=== PATIENT | female | born 1995 | race Caucasian/White ===

== ENCOUNTER 2017-06-24 17:18 | Emergency (ER) | payer MEDICAID, SELFPAY ==
[2017-06-24 17:19] VITALS: BP 130/78; PULSE 101; RESP 16; TEMP 36.9; O2SAT 97; BMI 20.9
--- NOTE | 2017-06-24 17:59 | ED.VISSUMM ---
- ER Visit Summary Date of Service: 06/24/17 Chief Complaint: [Vaginal bleeding] History of Present Illness: The patient is a 21 F [resents to the emergency department with spotting ?1 week. Patient states that over a week ago she took a home test that was positive. Patient is . Last menstrual period ended May 14. Patient denies any abdominal pain or cramping. Patient denies urinary symptoms. She has no history of STDs.] Physical Examination: [HEENT-PERRLA, EOMI. Cranial nerves II through XII grossly intact. TMs clear. Mucous membranes moist. No adenopathy. Cardiovascular-regular rate and rhythm without murmur or ectopy Lungs-clear to auscultation, chest wall stable without crepitus or subcu emphysema Abdomen-normoactive bowel sounds, soft, nontender, no rebound or rigidity, no peritoneal signs. Extremities-intact ?4, normal range of motion, normal pulses, atraumatic] Test Results: [CBC with differential showed a white count of 5.9, hemoglobin 12.6, hematocrit 36, platelets 263. Urinalysis was normal. Type and Rh was O+. Quantitative hCG was 25,830. Pelvic ultrasound obtained showed a single live intrauterine measuring 6 weeks 3 days with a minimal subchorionic hemorrhage and a heart rate of 93 bpm.] Emergency Department Course and Treatment: [None Treatment Plan: [Patient to keep follow-up appointment with her HOUSEKEEPING ROOM INSPECTOR on July 06.] Disposition: [Discharged to home in stable condition. Patient to return if pelvic pain, severe bleeding, or condition should worsen in any way.] Impression: [First trimester vaginal bleeding Threatened ] This note was generated with [employer] dictation software. It may contain incorrect words, spelling, and punctuation that were not noted in review of the chart prior to signing ED Disposition - Plan for ED Patient: Chief Complaint: Referrals: Lam Lozano MD [Primary Care Provider] -
[2017-06-24 18:01] LABS: Absolute Lymphocyte Count 2.54 X10^3/ul (0.83-4.51); Absolute Neutrophil Count 2.8 X10^3/uL (2.0-7.7); Basophil# 0.02 X10^3/uL; Basophil% 0.3 % (0-1); Eosinophil# 0.11 X10^3/uL; Eosinophils% 1.9 % (0-5); Hematocrit 36.4 % (37-47); Hemoglobin 12.6 g/dl (12.0-15.0); Lymphocyte # 2.54 X10^3/ul (4.0); Lymphocyte % 43.4 % (19-41); Mean Corp Hgb Conc 34.6 g/gl (32-36); Mean Corpuscular Volume 83.7 fL (81-99); Mean Platelet Vol. 9.3 fl (6.2-12.0); Monocyte# 0.33 X10^3/uL; Monocyte% 5.6 % (0-10); Neutrophil # 2.84 X10^3/uL (2.7-7.7); Neutrophil % 48.6 % (47-70); Platelet Count 263 K/mm3 (150-450); RBC Distribution Width CV 12.1 % (11.6-14.6); RBC Distribution Width SD 37.1 fl (35.1-43.9); Red Blood Count 4.35 M/mm3 (4.2-5.4); White Blood Count 5.9 K/mm3 (4.4-11.0)
[2017-06-24 18:03] LABS: POSITIVE COUNT NO; POSITIVE DIFFERENTIAL NO; POSITIVE MORPHOLOGY NO
[2017-06-24 18:27] LABS: Red Blood Cells-Urine 0 SEEN /hpf (0-5); White Blood Cells 0 SEEN /hpf (0-5)
[2017-06-24 18:38] LABS: Color, Urine Yellow (Yellow); Glucose, Dipstick Normal (Normal); Ketone-Dipstick 15 mg/dl (Negative); Leukocyte Esterase-Dipstick Negative /ul (Negative); Nitrite-Dipstick Negative (Negative); Occult Blood-Urine 25 /ul (Negative); Protein-Dipstick Negative (Negative); Specific Gravity, Urine 1.015 (1.002-1.030); Urine Bilirubin Dipstick Negative (Negative); Urine Clarity Clear (Clear); Urine Urobilinogen Normal (Normal); Urine pH 6.5 (5.0 - 8.0)
[2017-06-24 19:01] LABS: Bacteria RARE /hpf (None Seen); Mucous, Urine 1+ /hpf (<or=2+); Squamous Epithelial Cells - UA 0-5 SEEN /hpf (5-10)
--- NOTE | 2017-06-24 19:02 | US_ITS ---
STUDY: FIRST TRIMESTER OBSTETRICAL ULTRASOUND REASON FOR EXAM: Female, 21 years old. Vaginal spotting. LMP: 2-18 TECHNIQUE: Transvaginal real-time exam with ortega scale image documentation and limited Doppler color flow. PRIOR ULTRASOUND: None. FINDINGS: There is visualization of a single gestational sac in a normal intrauterine position. The mean sac diameter (MSD) measures 1.5 cm, indicating an estimated gestational age (EGA) of 6 weeks, 3 days. The gestational sac shape is within normal limits. There is a visualized yolk sac. The yolk sac measures 3.4 mm. The placenta is non-visualized. There is visualization of a live embryo. The crown-rump length (CRL) measures 0.54 cm, indicating an estimated gestational age (EGA) of 6 weeks, 3 days. There is demonstrated cardiac activity with a heart rate of 93 bpm. The estimated gestation age (EGA) by LMP is 6 weeks, 5 days. The estimated date of delivery (MAYKEL) by LMP is 02/12/2018 The estimated gestation age (EGA) by US is 6 weeks, 3 days. The estimated date of delivery (MAYKEL) by US is 02/14/2018. The uterus measures 7.3 x 5.2 x 4.5 cm. There is no demonstrated uterine fibroid. The cervix is closed. Minimal subchorionic hemorrhage. The right ovary measures 3.4 x 2.6 x 1.9 cm. There is a 2.2 x 1.9 x 1.6 hemorrhagic cyst of the right ovary. There is no visualized right adnexal mass or complex lesion. The left ovary measures 2.5 x 1.3 x 1.0 cm. There is no left ovarian cyst. There is no visualized left adnexal mass or complex lesion. There is minimal fluid in the cul de sac. US/Transvaginal w/Preg US IMPRESSION: Single living intrauterine fetus of 6 weeks and 3 days with an MAYKEL of 02/14/2018. Minimal subchorionic hemorrhage. 2.2 x 1.9 x 1.6 cm hemorrhagic corpus luteum cyst of the right ovary. Normal left ovary. No adnexal masses. Minimal free fluid. Electronically Signed: Jadyn Ortega MD at 20:28 EDT , Service support ,
[2017-06-24 20:17] VITALS: BP 121/77; PULSE 75; RESP 16; O2SAT 97
--- NOTE | 2017-06-24 20:53 | ED.DEP ---
ED Disposition - Plan for ED Patient: Chief Complaint: Instructions: ED Miscarriage Poss Referrals: Lam Lozano MD [Primary Care Provider] - America Simons MD [STAFF PHYSICIAN] - Keep Patricio appointment
[2017-06-24 21:06] VITALS: RESP 15
--- NOTE | 2017-06-24 21:07 | ED.RN ---
PT GIVEN WRITTEN AND VERBAL DISCHARGE INSTRUCTIONS AND EDUCATED ON FOLLOW UP WITH OB. PT IV D/C AND COVERED WITH 2X2 GAUZE DRESSING AND PAPER TAPE. MINIMAL BLEEDING FROM SITE NOTED. PT AMBULATORY OUT OF DEPT AFTER DRESSING SELF.
== END 2017-06-24 21:08 | disposition home or self-care (01) ==
PROVIDERS: Emergency Provider Emergency Medicine; Family Provider Pediatrics; PCP Pediatrics
DX: O20.0 Threatened abortion (principal); Z3A.01 Less than 8 weeks gestation of pregnancy
CPT/HCPCS: 76817; 81001; 84702; 85025; 86900; 99283; A4216

== ENCOUNTER 2018-02-06 23:20 | Outpatient (CLI) | payer MEDICAID, SELFPAY ==
[2018-02-06 23:47] VITALS: BMI 26.1
--- NOTE | 2018-02-12 08:42 | OB.TRI.NOTE ---
History of Present Illness Date of Service: 02/06/18 Was patient seen by the physician?: No Reason For Visit: R/O LABOR Date of Service: 02/06/18 Final MAYKEL: 02/17/18 Gestational age: 39 Weeks and 2 Days Allergies No Known Allergies Allergy (Verified 02/07/18 01:19 EDT) NST - FHR Rate Baby A Baseline: 125 bpm Variability:: Moderate Accelerations:: 15 x 15 Decelerations:: None NST Reactive:: Yes FHR Category:: Category I Uterine Activity:: irreg ctx/irritability Impression/Plan 22-year-old 1 para 0 at 38-3/7 weeks gestation for false labor. NST is reactive. Patient was found not to be in labor. Follow-up in the office as scheduled or as needed.
== END 2018-02-07 00:05 | disposition home or self-care (01) ==
LOC: WPOUT 23:43 → WP 23:44
PROVIDERS: Family Provider Pediatrics; PCP Pediatrics; Visit Provider Obstetrics & Gynecology
DX: O47.1 False labor at or after 37 completed weeks of gestation (principal); Z3A.39 39 weeks gestation of pregnancy
CPT/HCPCS: 59025; 59050; 99218; G0378

== ENCOUNTER 2018-02-19 07:25 | Inpatient (IN) | payer MEDICAID, SELFPAY ==
[2018-02-19] MEDS: Lactated Ringers 1,000 ML 50 ML IV (08:00)
[2018-02-19 08:24] VITALS: BMI 27.4
[2018-02-19 08:32] LABS: Hematocrit 33.8 % (37-47); Hemoglobin 11.4 g/dl (12.0-15.0); Mean Corp Hgb Conc 33.7 g/gl (32-36); Mean Corpuscular Hgb 28.6 pg (27.0-32.0); Mean Corpuscular Volume 84.9 fL (81-99); Mean Platelet Vol. 10.2 fl (6.2-12.0); Platelet Count 256 K/mm3 (150-450); RBC Distribution Width CV 12.7 % (11.6-14.6); RBC Distribution Width SD 38.2 fl (35.1-43.9); Red Blood Count 3.98 M/mm3 (4.2-5.4); White Blood Count 10.4 K/mm3 (4.4-11.0)
[2018-02-19 08:48] LABS: Scan Indicated on CBC? Y/N NO
--- NOTE | 2018-02-19 08:54 | PCM.HP.OB ---
History Date of Admission: 02/19/18 Final MAYKEL: 02/17/18 Final MAYKEL Source: US <20 weeks Gestational age: 40 Weeks and 2 Days History of this : This is a 22 year-old, G [1], P [0], at 40 weeks gestational age presenting to triage for evaluation of labor. Patient reports regular ctx started at 0300 this morning and are now 2-5 minutes apart. Patient denies VB or vaginal discharge. +FM noted. care initiated at 7 weeks x 15 visits and has had an uncomplicated course. Allergies No Known Allergies Allergy (Verified 02/19/18 08:25) Home Medications: Home Medications Acyclovir [Zovirax] 400 mg PO TID 02/06/18 Ferrous Sulfate 325 mg PO DAILY 02/06/18 Vits [Prenatabs FA ] 1 tablet PO DAILY 02/06/18 Smoking Status: Never smoker Alcohol: None Number of Fetus(es): 1 Heart Tracin baseline, moderate variability, + accels, no decels noted TOCO Analysis: 2-4 minutes, palpate moderately strong History Past Pregnancies: Past Pregnancies Delivery Date Name GA/Weeks Outcome Route Weight Gender Labor Length Anesthesia Delivery Location Provider FOB Labs: GBS pos, Urine Tox NEg, Urine Culture neg, Rubella Imm, HIV NEg, HepBsag Neg, Syphilis Neg, H/H = .2, GC/CT = Neg, 1 hour GTT = WNL Expected Infant Delivery Method: Spontaneous Vaginal Describe any other labor & delivery plans:: Epidural, Vaginal Delivery Number of Visits: 15 Review of Systems Constitutional: Denies: Chills, Fever, Weight Change HEENT: Denies: Head Aches, Sinus Congestion, Sinus Drainage Cardiovascular: Denies: Chest Pain, Palpitations Respiratory: Denies: Cough, Shortness of breath at rest, Sputum production Gastrointestinal: Reports: Abdominal Pain - Regular ctx noted. Denies: Nausea, Vomiting Genitourinary: Denies: Dysuria Gynecological: Reports: Vaginal discharge Musculoskeletal: Denies: Joint Pain, Joint Tenderness Skin: Denies: Rash, Wounds Neurological: Denies: Numbness, Tingling, Focal weakness Psychiatric: Denies: Anxiety, Depression, Homicidal Ideations, Suicidal Ideations Hematologic/ Lymphatic: Denies: Easy Bruising, Easy Bleeding Physical Exam Vitals: Normotensive and afebrile General: Alert, Oriented x3, No apparent distress HEENT: Atraumatic, Normocephalic. Negative for: Thyromegaly, Lymphadenopathy Cardiovascular: Regular rate, Regular Rhythm Lungs: Clear to auscultation Abdomen: Bowel Sounds Present, Gravid Neurological: Deep Tendon Reflexes 2+/4 and Symmetrical, Neuro grossly intact DIVERSIONAL THERAPIST'S ASSISTANT: Normal external genitalia. Negative for: Vulvar lesions Assessment/Plan This is a 22 year-old, G [1], P [0], at 40 weeks gestational age, Active Labor, Category I FHT. P: 1) Admit for labor - Dr. Corbin aware of admission 2) Epidural on request 3) Anticpate Mary Jacobs EGG SMELLER-CNM
--- NOTE | 2018-02-19 08:58 | HP.PCM_ITS ---
History Date of Admission: 02/19/18 Final MAYKEL: 02/17/18 Final MAYKEL Source: US <20 weeks Gestational age: 40 Weeks and 2 Days History of this : This is a 22 year-old, G [1], P [0], at 40 weeks gestational age presenting to triage for evaluation of labor. Patient reports regular ctx started at 0300 this morning and are now 2-5 minutes apart. Patient denies VB or vaginal discharge. +FM noted. care initiated at 7 weeks x 15 visits and has had an uncomplicated course. Allergies No Known Allergies Allergy (Verified 02/19/18 08:25) Home Medications: Home Medications Acyclovir [Zovirax] 400 mg PO TID 02/06/18 Ferrous Sulfate 325 mg PO DAILY 02/06/18 Vits [Prenatabs FA ] 1 tablet PO DAILY 02/06/18 Smoking Status: Never smoker Alcohol: None Number of Fetus(es): 1 Heart Tracin baseline, moderate variability, + accels, no decels noted TOCO Analysis: 2-4 minutes, palpate moderately strong History Past Pregnancies: Past Pregnancies Delivery Date Name GA/Weeks Outcome Route Weight Gender Labor Length Anesthesia Delivery Location Provider FOB Labs: GBS pos, Urine Tox NEg, Urine Culture neg, Rubella Imm, HIV NEg, HepBsag Neg, Syphilis Neg, H/H = .2, GC/CT = Neg, 1 hour GTT = WNL Expected Infant Delivery Method: Spontaneous Vaginal Describe any other labor & delivery plans:: Epidural, Vaginal Delivery Number of Visits: 15 Review of Systems Constitutional: Denies: Chills, Fever, Weight Change HEENT: Denies: Head Aches, Sinus Congestion, Sinus Drainage Cardiovascular: Denies: Chest Pain, Palpitations Respiratory: Denies: Cough, Shortness of breath at rest, Sputum production Gastrointestinal: Reports: Abdominal Pain - Regular ctx noted. Denies: Nausea, Vomiting Genitourinary: Denies: Dysuria Gynecological: Reports: Vaginal discharge Musculoskeletal: Denies: Joint Pain, Joint Tenderness Skin: Denies: Rash, Wounds Neurological: Denies: Numbness, Tingling, Focal weakness Psychiatric: Denies: Anxiety, Depression, Homicidal Ideations, Suicidal Ideat ions Hematologic/ Lymphatic: Denies: Easy Bruising, Easy Bleeding Physical Exam Vitals: Normotensive and afebrile General: Alert, Oriented x3, No apparent distress HEENT: Atraumatic, Normocephalic. Negative for: Thyromegaly, Lymphadenopathy Cardiovascular: Regular rate, Regular Rhythm Lungs: Clear to auscultation Abdomen: Bowel Sounds Present, Gravid Neurological: Deep Tendon Reflexes 2+/4 and Symmetrical, Neuro grossly intact ROOM ATTENDANTS: Normal external genitalia. Negative for: Vulvar lesions Assessment/Plan This is a 22 year-old, G [1], P [0], at 40 weeks gestational age, Active Labor, Category I FHT. P: 1) Admit for labor - Dr. Corbin aware of admission 2) Epidural on request 3) Anticpate Mary Jacobs LEATHER STRIPPING MACHINE OPERATOR-CNM
[2018-02-19] MEDS: fentaNYL-bupivacaine (epidural) 100 ML BAG EPIDURAL (10:20)
[2018-02-19] MEDS: Oxytocin 30 units/NS 500 ml 30 UNITS/500 ML IV.SOLN 334 UNITS IV (11:25)
--- NOTE | 2018-02-19 11:50 | PCM.OB.VAG ---
Vaginal Delivery Maternal Presentation: Active Labor Amniotic Membrane Rupture Type: Spontaneous Rupture of Membrane time: 0900 on 02/19/18 Amniotic Fluid Description: Clear Final MAYKEL: 02/17/18 Gestational age: 40 Weeks and 2 Days Date of Procedure: 02/19/18 Pre-Operative Diagnosis: Active Labor Post-Operative Diagnosis: of viable baby boy Surgery/ Procedure Performed: Spontaneous Vaginal Delivery Anesthesiologist: Km Villeda Type of Anesthesia: Epidural Description of Procedure: Patient progressed quickly to C/C/+2 with urge to bear down. Patient pushed well with urge and delivered viable baby boy over intact perineum @ 1125. Infant head delivered OA, restituted to JAMISON and then LOT. Anterior shoulder delivered without difficulty followed by posterior shoulder and body. Infant with spontaneous cry and respirations and was placed on maternal abdomen where baby was dried and stimulated and mouth and nose bulb suctioned. Apgars 8 and 9. Weight pending. Umbilical cord clamped and cut once it stopped pulsing by FOB. Placenta then delivered spontaneously via Davies mechanism intact with 3VC. Placental triage WNL. FF midline @ 2FB below umbilicus. EBL = 150cc. Upon inspection of vaginal vault, Rt. periurethral abrasion noted with good hemostasis. No repair indicated. Vaginal sweep negative. Sponge count correct. Baby to breast, [id number] and bonding initiated. Mary CORRALES Presentation: Vertex, JAMISON Placental Delivery Description: Spontaneous Placenta Disposition: [facility] Cord Vessel Description: 3 Vessels Cord Entanglement: None Estimated Blood Loss: 150 Infant A gender: Male (1 minute): 8 (5 minute): 9 Episiotomy Description: None Laceration: None Medications given after delivery: IV Pitocin Complications: None
[2018-02-19] MEDS: Oxytocin 30 units/NS 500 ml 30 UNITS/500 ML IV.SOLN 167 UNITS IV (12:00)
[2018-02-19] MEDS: Lactated Ringers 1,000 ML 15 ML IV (12:51)
[2018-02-19 13:59] VITALS: BP 117/54; PULSE 70; RESP 16; TEMP 37.1; O2SAT 99
[2018-02-19 15:58] VITALS: BP 122/64; PULSE 94; RESP 18; TEMP 36.7; O2SAT 99
[2018-02-19 19:38] VITALS: BP 118/66; PULSE 87; RESP 16; TEMP 37.3; O2SAT 96
[2018-02-19] MEDS: Ibuprofen 600 MG Tablet PO (19:40)
[2018-02-20 00:08] VITALS: BP 109/64; PULSE 91; RESP 16; TEMP 36.3; O2SAT 97
[2018-02-20 04:09] VITALS: BP 128/85; PULSE 80; RESP 16; TEMP 36.6; O2SAT 97
[2018-02-20 07:25] VITALS: BP 114/54; PULSE 71; RESP 16; TEMP 36.3; O2SAT 98
[2018-02-20] MEDS: Ibuprofen 600 MG Tablet PO ×2 (07:38→17:54)
--- NOTE | 2018-02-20 08:09 | DCINST_ITS ---
Discharge Diet: No Restrictions Discharge Activity: Return to Normal Activity, May not drive while taking narcotic pain medications., May Shower May resume sexual activity in: 4-6 weeks Additional Activity Instructions:: Nothing in the vagina for 4-6 weeks. You may return to work/school in 6 weeks. Call your doctor if your incision/area has: Continuous Slow Oozing, Sudden Increased Bleeding, Increased Pain/ Swelling, Increased Redness, Foul Smelling Discharge Call your doctor if you observe: Fever of 101 or Higher, Inability to urinate, Inability to have a bowel movement, Using more than one pad per hour Additional Instructions: If you experience any of the following, contact your healthcare provider. * Bleeding that soaks a pad every hour for 2 hours * Fever 100.4 or higher * Unrelieved incision or abdominal pain * Swelling, redness, discharge or bleeding from your incision or episiotomy site * Your incision begins to separate * Problems urinating (including inability to urinate or burning while urinating). * Visual changes * Severe headache * Flu-like symptoms * Pain or redness in one of both of your breasts * Pain, warmth, tenderness or swelling in your legs, especially the calf area * Frequent nausea and vomiting * Symptoms of depression or anxiety If you experience any of the following, call 911 or go to the nearest Emergency Room. * Chest pain * Problems breathing * Seizure activity * Partial or complete paralysis of a body part, slurred speech, weakness or drooping of the face, or a sudden inability to walk or hold your balance Allergies/Adverse Reactions: Allergies No Known Allergies Allergy (Verified 02/19/18 08:25) Medications to take at Discharge Acyclovir [Zovirax] 400 mg PO TID 02/06/18 Ferrous Sulfate 325 mg PO DAILY 02/06/18 Vits [Prenatabs FA ] 1 tablet PO DAILY 02/06/18 Please Follow Up With: Mary Jacobs CNM When: Call to make an appointment with your internet marketer in 2 weeks and in 6 weeks. If you had elevated Blood Pressure or 4th degree laceration you will need to be seen in 2 weeks. Primary Care Physician: Lam Lozano MD [Primary Care Provider] - Test Results: Test results from this visit will be discussed in further detail at your follow- up appointment, if applicable. Proposed Discharge Date: 02/21/18
--- NOTE | 2018-02-20 08:15 | PN.OBGYN_ITS ---
Subjective: Patient laying in bed resting. Patient reports baby latching intermittently, some feeding sessions are going better than others at this time. Patient notes no issues with ambulation or urination at this time. Patient reports some fatigue and muscle soreness from delivery yesterday but overall she has no complaints. Objective: Nipples without cracks or blisters, no erythema noted Abdomen NT x 4 quadrants, FF midline 4 FB below umbilicus +2/4 reflexes in LE, no edema, negative calf tenderness to palpation Scant rubra lochia, intact perineum - Physical Exam General: Alert, Oriented x3, Cooperative HEENT: Atraumatic, Normocephalic Neck: Supple Lungs: Normal air movement Cardiovascular: Regular rate, No murmurs Abdomen: Soft, Non Tender Extremities: No edema, Capillary Refill Less than 3 Seconds Skin: No rashes, No breakdown Musculoskeletal: No Tenderness to Palpation of Joints or Extremities Neurological: Cranial nerves II-XII grossly intact Psych/Mental Status: Normal Affect, Appropriate, Alert and oriented to time, pl [place], person, mood and affect Vital Signs Temp Pulse Resp BP Pulse Ox 97.4 F L 71 16 114/54 L 98 02/20/18 07:25 02/20/18 07:25 02/20/18 07:25 02/20/18 07:25 02/20/18 07:25 Oxygen Delivery Method Room Air Weight: 155 lb Body Mass Index (BMI) 27.4 Intake and Output for Last 24 Hours 02/18/18 02/19/18 02/20/18 23:59 23:59 23:59 Intake Total 2748 / 2748 Output Total 1800 / 1800 Balance 948 / 948 Laboratory Tests Past 24 Hrs 02/19/18 02/19/18 08:00 08:00 WBC 10.4 RBC 3.98 L Hgb 11.4 L Hct 33.8 L MCV 84.9 MCH 28.6 MCHC 33.7 RDW 12.7 RDW Differential 38.2 Plt Count 256 MPV 10.2 Blood Type O POSITIVE Antibody Screen NEGATIVE Medical Necessity - Tobacco Use Smoking Status: Never smoker Assessment/Plan 22 y/o now, s/p , PPD #1, Normal Course P: 1) Anticipate discharge to home tomorrow 2) Continue PP orders at this time Mary CORRALES
[2018-02-20 12:00] VITALS: BP 103/60; PULSE 70; RESP 16; TEMP 36.6; O2SAT 97
[2018-02-20 16:04] VITALS: BP 101/62; PULSE 78; RESP 18; TEMP 36.6; O2SAT 96
[2018-02-20 19:33] VITALS: BP 98/49; PULSE 68; RESP 16; TEMP 36.8; O2SAT 99
[2018-02-21 01:59] VITALS: BP 119/67; PULSE 91; RESP 17; TEMP 36.6; O2SAT 97
[2018-02-21 07:53] VITALS: BP 103/59; PULSE 78; RESP 16; TEMP 36.5
[2018-02-21] MEDS: Ibuprofen 600 MG Tablet PO (10:08)
--- NOTE | 2018-02-21 11:10 | PCM.PN.OB ---
Subjective: Patient sitting up in bed at this time, denies any issues or complaints at this time. Patient denies LEÓN, scotoma, dizziness at this time. Patient denies issues with urination or ambulation, patient reports she had a bowel movement today without any issues. Patient desires discharge to home today. Objective: Nipples without cracks or blisters, no erythema noted bilaterally Abdomen NT x 4 quadrants, FF midline 2FB below umbilicus +2/4 reflexes in LE, no edema, negative calf tenderness to palpation bilaterally scant rubra lochia, intact perineum - Physical Exam General: Alert, Oriented x3, Cooperative HEENT: Atraumatic, Normocephalic Neck: Supple Lungs: Normal air movement Cardiovascular: Regular rate, Regular Rhythm Abdomen: Soft, Non Tender, Passing Flatus Extremities: No edema, Capillary Refill Less than 3 Seconds Skin: No rashes, No breakdown Musculoskeletal: No Tenderness to Palpation of Joints or Extremities Neurological: Cranial nerves II-XII grossly intact Psych/Mental Status: Normal Affect, Appropriate, Alert and oriented to time, place, person, mood and affect Vital Signs Temp Pulse Resp BP Pulse Ox 97.7 F L 78 16 103/59 L 97 02/21/18 07:53 02/21/18 07:53 02/21/18 07:53 02/21/18 07:53 02/21/18 01:59 Oxygen Delivery Method Room Air Weight: 155 lb Body Mass Index (BMI) 27.4 Intake and Output for Last 24 Hours 02/19/18 02/20/18 02/21/18 23:59 23:59 23:59 Intake Total 2748 / 2748 Output Total 1800 / 1800 Balance 948 / 948 Medical Necessity - Tobacco Use Smoking Status: Never smoker Assessment/Plan 22 y/o now, s/p , PPD #2, Normal Course P: 1) Discharge to home pending discharge 2) RTC at 2 weeks and 6 [facility] Mary CORRALES
[2018-02-21 14:47] VITALS: BP 111/63; PULSE 92; RESP 16; TEMP 37
== END 2018-02-21 19:00 | disposition home or self-care (01) | DRG 560 ==
PROVIDERS: Obstetrics & Gynecology; Admitting Provider Obstetrics & Gynecology; Family Provider Pediatrics; PCP Pediatrics; Referring Provider Obstetrics & Gynecology; Visit Provider Obstetrics & Gynecology
DX: O48.0 Post-term pregnancy (principal); O71.82 Other specified trauma to perineum and vulva; Z37.0 Single live birth; Z3A.40 40 weeks gestation of pregnancy
CPT/HCPCS: 59025; 59050; 85027; 86850; 86900; 99218; J7120; G0378

== ENCOUNTER 2018-04-28 12:11 | Emergency (ER) | payer MEDICAID, SELFPAY ==
[2018-04-28 12:12] VITALS: BP 114/60; PULSE 58; RESP 14; TEMP 36.6; O2SAT 100; BMI 22.6
--- NOTE | 2018-04-28 12:26 | RAD_ITS ---
STUDY: X-RAY - LEFT FOOT CLINICAL: Pain and lateral swelling after fall this afternoon, history of great toe fracture. TECHNIQUE: 3 view(s) of the foot. COMPARISON: None. FINDINGS: Normal talus, calcaneus, and tarsal bones. Normal visualized subtalar, talonavicular, calcaneocuboid, tarsal and tarsometatarsal articulations. Normal metatarsi. Normal metatarsophalangeal joint of the great toe. Normal tibial and fibular sesamoid bones. Normal interphalangeal joint of the great toe. Normal phalanges of the great toe. Normal second through fifth metatarsophalangeal joints. Normal interphalangeal joints and phalanges of the lesser toes. The soft tissue structures are unremarkable. RAD/Foot min 3 Views IMPRESSION: Unremarkable x-ray examination of the left foot without demonstrated fracture. Electronically Signed: Edgardo Aj MD at 13:20 EST Tel , Service support ,
--- NOTE | 2018-04-28 12:40 | RAD_ITS ---
STUDY: X-RAY - LEFT ANKLE REASON FOR EXAM: Ankle pain, lateral swelling, fall this afternoon. TECHNIQUE: 3 view(s) of the ankle. COMPARISON: None. FINDINGS: Normal visualized distal tibia and fibula. Normal medial and lateral malleoli. Normal tibiotalar articulation and ankle mortise. Normal visualized talus and calcaneus. The visualized subtalar, talonavicular, calcaneocuboid and tarsal articulations are normal. There is mild soft tissue swelling overlying the lateral malleolus. RAD/Ankle min 3 Views IMPRESSION: Mild soft tissue swelling. No demonstrated fracture. Electronically Signed: Edgardo Aj MD at 13:20 EST Tel , Service support ,
--- NOTE | 2018-04-28 13:35 | ED.VISSUMM ---
- ER Visit Summary Date of Service: 04/28/18 Chief Complaint: [Fall] History of Present Illness: The patient is a 22 F [presents to the emergency department with complaint of a fall that occurred about an hour ago. Patient that she was coming down the steps when she missed the last step and she fell twisting her left foot and ankle. Patient had a hard time bearing weight secondary to pain. She denies striking her head or loss of consciousness. Patient has no medical problems otherwise. She denies any other injuries.] Physical Examination: [HEENT-PERRLA, EOMI. Cranial nerves II through XII grossly intact. TMs clear. Mucous membranes moist. No adenopathy. No C-spine tenderness on palpation. Cardiovascular-regular rate and rhythm without murmur or ectopy Lungs-clear to auscultation, chest wall stable without crepitus or subcu emphysema Abdomen-normoactive bowel sounds, soft, nontender, no rebound or rigidity, no peritoneal signs. Extremities-intact ?4, normal range of motion, normal pulses, atraumatic. Left foot and ankle-patient has some diffuse tenderness palpation over the lateral malleolus and diffusely about the left foot. There is no pain at the proximal fibular head. No evidence of ecchymosis or bruising noted. No significant soft tissue swelling noted. No deformity noted. Neurovascularly intact.] Test Results: [X-rays of the left foot and ankle obtained were normal other than some mild soft tissue swelling noted about the ankle.] Emergency Department Course and Treatment: [Patient will be given air splint and crutches] Treatment Plan: [Patient advised ice and elevate the extremity. Patient use ibuprofen and Tylenol for discomfort. Patient to follow-up with primary care physician in 7-10 days.] Disposition: [Discharged home in stable condition] Impression: [Left foot and ankle sprain] This note was generated with [employer] dictation software. It may contain incorrect words, spelling, and punctuation that were not noted in review of the chart prior to signing ED Disposition - Plan for ED Patient: Chief Complaint: Fall Referrals: Lam Lozano MD [Primary Care Provider] -
--- NOTE | 2018-04-28 13:36 | ED.DEP ---
ED Disposition - Plan for ED Patient: Chief Complaint: Fall Instructions: Treating Ankle Sprains, ED Sprain Foot Referrals: Lam Lozano MD [Primary Care Provider] - 1 Week
--- OUTSIDE RECORDS SUMMARY | 2018-06-30 12:15 | XMS RPT_ITS ---
:1995 Author Organization OHIP Care Team Providers Name Role Phone AMERICA CARVALHO Attending Unavailable TIERA FOSS Attending Unavailable AMERICA CARVALHO Referring Unavailable MATT BARBER (CN) Attending Unavailable AMERICA CARVALHO Referring Unavailable ROBERT VARGAS Attending Unavailable AMERICA CARVALHO Referring Unavailable MATT BARBER (KHRIS) Referring Unavailable NABIL MORTENSEN Attending Unavailable AMERICA CARVALHO Referring Unavailable MATT BARBER (CN) Referring Unavailable DIMAS MARTÍNEZ Attending Unavailable NEYHART HORTA, AMERICA Referring Unavailable NEYHART HORTA, AMERICA Attending Unavailable NEYWALESKAT HORTA, AMERICA Referring Unavailable NABIL MORTENSEN Attending Unavailable NORAH ARAGON (CNM) Attending Unavailable NORAH ARAGON (CNM) Referring Unavailable NORAH ARAGON (CNM) Referring Unavailable NORAH ARAGON (CNM) Attending Unavailable NABIL MORTENSEN Attending Unavailable FESTUS, NABIL Referring Unavailable MATT BARBER (CNM) Attending Unavailable JONO DAVISON Attending Unavailable ROBERT VARGAS Attending Unavailable JONO DAVISON Referring Unavailable NEYHART HORTA, AMERICA Attending Unavailable NEYWALESKAT HORTA, AMERICA Attending Unavailable TIERA FOSS Attending Unavailable MATT BARBER (CNM) Attending Unavailable SUNILMATT (CNM) Attending Unavailable Blake, Lam Primary Care Unavailable Ungur, Remus Attending Unavailable Blake, Lam Primary Care Unavailable Ungur, Remus Attending Unavailable Neyhart-Horta, America Attending Unavailable Blake, Lam Primary Care Unavailable Blake, Lam Primary Care Unavailable Festus, Kardejuan Admitting Unavailable Festus, Nabil Attending Unavailable Nabil Mortensen Referring Unavailable PROBLEMS PROBLEMS DATE TYPE CONDITION / CODE ATTENDING STATUS SOURCE 12/22/2017 Active Anemia complicating Active [facility] Main trimester / [place] O99.013(ICD-10) Repository 11/26/2017 Active Anemia complicating Active [facility] Main unspecified trimester [place] / O99.019(ICD-10) Repository 11/26/2017 Active Iron deficiency [facility] anemia, unspecified / Clinic Main D50.9(ICD-10) [place] Repository 11/25/2017 Active 28 weeks gestation of NA Active [facility] / Clinic Main Z3A.28(ICD-10) [place] Repository 08/04/2017 Active 12 weeks gestation of NA Active [facility] Main Z3A.12(ICD-10) [place] Repository 07/22/2017 Active Encounter for [facility] supervision of normal Clinic Main first , [place] first trimester / Repository Z34.01(ICD-10) 07/22/2017 Active Other specified [facility] noninflammatory Clinic Main disorders of vulva [place] and perineum / Repository N90.89(ICD-10) PROCEDURES PROCEDURES No Procedure Records FoundRESULTS RESULTS DISCHARGE INSTRUCTION Observed: 04/28/2018 Status: F Source: [place] 1:38 PM [facility] REPOSITORY [facility] Medical Records Department [address] [place] [address] Discharge Instruction 04/28/18 1336 MR#: [id number] Acct: [id number] Name: BONNIE STALLWORTH Rep #: [id number] : 1995 22 From: Lilly Dunbar DO PCP: Lam Lozano MD Status: REG ER ED Disposition - Plan for ED Patient: Chief Complaint: Fall Instructions: Treating Ankle Sprains, ED Sprain Foot Referrals: Lam Lozano MD [Primary Care Provider] - 1 Week What to do if you have Problems For any increased pain, shortness of breath, bleeding, nausea or vomiting, chest pain, or any unexpected problems, contact your Primary Care Provider. Call [facility] ([phone]) or report to the closest Emergency Room. Call 911 if necessary. 04/28/18 1338 <Electronically signed by Lilly Dunbar DO> Date Lilly Dunbar DO Cosigner Signature (If Indicated): Date CC: Lam Lozano MD EMERGENCY DEPARTMENT Observed: 04/28/2018 Status: F Source: [place] SUMMARY 1:36 PM [facility] Medical Records Department [address] [place] [address] Emergency Department Summary 04/28/18 1335 MR#: [id number] Acct: [id number] Name: BONNIE STALLWORTH Rep #: [id number] : 1995 22 From: Lilly Dunbar DO PCP: Lam Lozano MD Status: REG ER - ER Visit Summary Date of Service: 04/28/18 Chief Complaint: [Fall] History of Present Illness: The patient is a 22 F [presents to the emergency department with complaint of a fall that occurred about an hour ago. Patient that she was coming down the steps when she missed the last step and she fell twisting her left foot and ankle. Patient had a hard time bearing weight secondary to pain. She denies striking her head or loss of consciousness. Patient has no medical problems otherwise. She denies any other injuries.] Physical Examination: [HEENT-PERRLA, EOMI. Cranial nerves II through XII grossly intact. TMs clear. Mucous membranes moist. No adenopathy. No C-spine tenderness on palpation. Cardiovascular-regular rate and rhythm without murmur or ectopy Lungs-clear to auscultation, chest wall stable without crepitus or subcu emphysema Abdomen-normoactive bowel sounds, soft, nontender, no rebound or rigidity, no peritoneal signs. Extremities-intact 4, normal range of motion, normal pulses, atraumatic. Left foot and ankle-patient has some diffuse tenderness palpation over the lateral malleolus and diffusely about the left foot. There is no pain at the proximal fibular head. No evidence of ecchymosis or bruising noted. No significant soft tissue swelling noted. No deformity noted. Neurovascularly intact.] Test Results: [X-rays of the left foot and ankle obtained were normal other than some mild soft tissue swelling noted about the ankle.] Emergency Department Course and Treatment: [Patient will be given air splint and crutches] Treatment Plan: [Patient advised ice and elevate the extremity. Patient use ibuprofen and Tylenol for discomfort. Patient to follow-up with primary care physician in 7-10 days.] Disposition: [Discharged home in stable condition] Impression: [Left foot and ankle sprain] This note was generated with Joroto dictation software. It may contain incorrect words, spelling, and punctuation that were not noted in review of the chart prior to signing ED Disposition - Plan for ED Patient: Chief Complaint: Fall Referrals: Lam Lozano MD [Primary Care Provider] - What to do if you have Problems For any increased pain, shortness of breath, bleeding, nausea or vomiting, chest pain, or any unexpected problems, contact your Primary Care Provider. Call [facility] ([phone]) or report to the closest Emergency Room. Call 911 if necessary. 04/28/18 0145 <Electronically signed by Lilly Dunbar DO> Date Lilly Dunbar DO Cosigner Signature (If Indicated): Date CC: Lam Lozano MD FOOT MIN 3 VIEWS Observed: 04/28/2018 Status: F Source: [place] 12:26 PM [facility] REPOSITORY [facility] Imaging Services [address] [place] [address] Foot min 3 Views MR#: [id number] Acct: [id number] Name: BONNIE STALLWORTH Rep #: [id number] : 1995 F 22 From: Edgardo Aj MD PCP: Lam Lozano MD Status: REG ER Study: Foot min 3 Views Date of Exam: 04/28/18 Exam# [id number] Ordering Dr: Lilly Dunbar DO STUDY: X-RAY - LEFT FOOT CLINICAL: Pain and lateral swelling after fall this afternoon, history of great toe fracture. TECHNIQUE: 3 view(s) of the foot. COMPARISON: None. FINDINGS: Normal talus, calcaneus, and tarsal bones. Normal visualized subtalar, talonavicular, calcaneocuboid, tarsal and tarsometatarsal articulations. Normal metatarsi. Normal metatarsophalangeal joint of the great toe. Normal tibial and fibular sesamoid bones. Normal interphalangeal joint of the great toe. Normal phalanges of the great toe. Normal second through fifth metatarsophalangeal joints. Normal interphalangeal joints and phalanges of the lesser toes. The soft tissue structures are unremarkable. RAD/Foot min 3 Views IMPRESSION: Unremarkable x-ray examination of the left foot without demonstrated fracture. Electronically Signed: Edgardo Aj MD at 13:20 EST Tel , Service support , CC: Lam Lozano MD; Lilyl Dunbar DO Registered Nurse Post Partum: Signed ANKLE MIN 3 VIEWS Observed: 04/28/2018 Status: F Source: [place] 12:26 PM [facility] REPOSITORY [facility] Imaging Services [address] [place] [address] Ankle min 3 Views MR#: [id number] Acct: [id number] Name: BONNIE STALLWORTH Rep #: [id number] : 1995 F 22 From: Edgardo Aj MD PCP: Lam Lozano MD Status: REG ER Study: Ankle min 3 Views Date of Exam: 04/28/18 Exam# [id number] Ordering Dr: Lilly Dunbar DO STUDY: X-RAY - LEFT ANKLE REASON FOR EXAM: Ankle pain, lateral swelling, fall this afternoon. TECHNIQUE: 3 view(s) of the ankle. COMPARISON: None. FINDINGS: Normal visualized distal tibia and fibula. Normal medial and lateral malleoli. Normal tibiotalar articulation and ankle mortise. Normal visualized talus and calcaneus. The visualized subtalar, talonavicular, calcaneocuboid and tarsal articulations are normal. There is mild soft tissue swelling overlying the lateral malleolus. RAD/Ankle min 3 Views IMPRESSION: Mild soft tissue swelling. No demonstrated fracture. Electronically Signed: Edgardo Aj MD at 13:20 EST Tel , Service support , CC: Lam Lozano MD; Lilly Dunbar DO Registered Nurse Post Partum: Signed PROGRESS Observed: 04/02/2018 Status: COMPLETED Source: [place] 3:50 PM [facility] REPOSITORY O ID: [id number] Author: Matt Barber Service: (none) Author Type: Qc Tech Type: Progress Notes Filed: 04/02/2018 5:14 PM Note Text: SUBJECTIVE: 22 year old female presents for 6 week exam. Outcome: . Date delivered: 02/19/18. Delivering Provider: Matt Barber CNM Delivered in what hospital? [facility] Sex: male, Wt: 7 lbs 9 oz. Baby's Name: Sun. Feeding: Bottle feeding. Patient reports infant has colick, has had to change formula 3 times. Currently on soy formula. Lochia: has ceased. Bladder: Normal. Bowels: Normal for patient, no c/o bowel problems. Last PAP: n/a If , do you have any drainage or redness at incision site? N/A Do you have a fever? No Sexual Activity: Has not resumed. control Plans: will discuss with provider at this visit. Additional Issues/problems/concerns: none Nina Willams LPN OBJECTIVE: Thyroid: normal to inspection and palpation Breast Exam: breasts symmetric, no dominant or suspicious mass, no skin or nipple changes, no axillary adenopathy. Abdomen: soft, non-tender, no masses, no hepatosplenomegaly and no lymphadenopathy Incision: None Perineum: perineum intact. Pelvic Exam: negative findings: deferred - patient currently on menses Bimanual Exam: deferred ASSESSMENT: 22 y/o , s/p , 6 weeks Good candidate for oral contraceptives , patch, Depo Provera, Paragard IUD, Mirena IUD, Anna Marie IUD, Nuvaring and condoms. Patient Use, risks , benefits and side effects discussed with patient. PLAN: PP Depression Screening done - low risk for depression teaching reviewed Rx for Sprintec OCP - 3 pill packs disp with 3 RF RTC for annual exams and PRN, prescription given per orders I have reviewed and updated past medical and surgical history, medications and allergies. Matt Barber APRN.CNM DISCHARGE INSTRUCTION Observed: 02/20/2018 Status: F Source: [place] 8:09 AM [facility] REPOSITORY [facility] Medical Records Department [address] [place] [address] Instructions for Home/Discharge Instructions 02/20/18807 MR#: [id number] Acct: [id number] Name: BONNIE STALLWORTH Rep #: [id number] : 1995 22 From: Matt Barber CNM PCP: Lam Lozano MD Status: ADM IN Discharge Diet: No Restrictions Discharge Activity: Return to Normal Activity, May not drive while taking narcotic pain medications., May Shower May resume sexual activity in: 4-6 weeks Additional Activity Instructions:: Nothing in the vagina for 4-6 weeks. You may return to work/school in 6 weeks. Call your doctor if your incision/area has: Continuous Slow Oozing, Sudden Increased Bleeding, Increased Pain/ Swelling, Increased Redness, Foul Smelling Discharge Call your doctor if you observe: Fever of 101 or Higher, Inability to urinate, Inability to have a bowel movement, Using more than one pad per hour Additional Instructions: If you experience any of the following, contact your healthcare provider. * Bleeding that soaks a pad every hour for 2 hours * Fever 100.4 or higher * Unrelieved incision or abdominal pain * Swelling, redness, discharge or bleeding from your incision or episiotomy site * Your incision begins to separate * Problems urinating (including inability to urinate or burning while urinating). * Visual changes * Severe headache * Flu-like symptoms * Pain or redness in one of both of your breasts * Pain, warmth, tenderness or swelling in your legs, especially the calf area * Frequent nausea and vomiting * Symptoms of depression or anxiety If you experience any of the following, call 911 or go to the nearest Emergency Room. * Chest pain * Problems breathing * Seizure activity * Partial or complete paralysis of a body part, slurred speech, weakness or drooping of the face, or a sudden inability to walk or hold your balance Allergies/Adverse Reactions: Allergies No Known Allergies Allergy (Verified 02/19/18 08:25) Medications to take at Discharge Acyclovir [Zovirax] 400 mg PO TID 02/06/18 Ferrous Sulfate 325 mg PO DAILY 02/06/18 Vits [Prenatabs FA ] 1 tablet PO DAILY 02/06/18 Please Follow Up With: Matt Barber CNM When: Call to make an appointment with your slide maker in 2 weeks and in 6 weeks. If you had elevated Blood Pressure or 4th degree laceration you will need to be seen in 2 weeks. Primary Care Physician: Lam Lozano MD [Primary Care Provider] - Test Results: Test results from this visit will be discussed in further detail at your follow-up appointment, if applicable. Proposed Discharge Date: 02/21/18 02/20/18 08 <Electronically signed by Matt Barber CNM> Date Matt Barber CNM CC: Lam Lozano MD PROGRESS Observed: 02/19/2018 Status: COMPLETED Source: [place] 2:40 PM [facility] REPOSITORY O ID: [id number] Author: Nina Willams LPN Service: (none) Author Type: (none) Type: Progress Notes Filed: 02/19/2018 2:40 PM Note Text: Pt delivered via at [facility] on 02/19/18 per Matt Barber CNM. See OB Outcome note. Nina Willams LPN OPERATIVE REPORT Observed: 02/19/2018 Status: F Source: [place] 12:00 PM [facility] REPOSITORY [facility] Medical Records Department [address] [place] [address] Operative Report 02/19/18 1150 MR#: [id number] Acct: [id number] Name: BONNIE STALLWORTH Rep #: [id number] : 1995 22 From: Matt Barber CNM PCP: Lam Lzoano MD Status: ADM IN Location: [id number] Vaginal Delivery Maternal Presentation: Active Labor Amniotic Membrane Rupture Type: Spontaneous Rupture of Membrane time: 0900 on 02/19/18 Amniotic Fluid Description: Clear Final MAYKEL: 02/17/18 Gestational age: 40 Weeks and 2 Days Date of Procedure: 02/19/18 Pre-Operative Diagnosis: Active Labor Post-Operative Diagnosis: of viable baby boy Surgery/ Procedure Performed: Spontaneous Vaginal Delivery Anesthesiologist: Km Villeda Type of Anesthesia: Epidural Description of Procedure: Patient progressed quickly to C/C/+2 with urge to bear down. Patient pushed well with urge and delivered viable baby boy over intact perineum @ 1125. Infant head delivered OA, restituted to JAMISON and then LOT. Anterior shoulder delivered without difficulty followed by posterior shoulder and body. with spontaneous cry and respirations and was placed on maternal abdomen where baby was dried and stimulated and mouth and nose bulb suctioned. Apgars 8 and 9. Weight pending. Umbilical cord clamped and cut once it stopped pulsing by FOB. Placenta then delivered spontaneously via Davies mechanism intact with 3VC. Placental triage WNL. FF midline @ 2FB below umbilicus. EBL = 150cc. Upon inspection of vaginal vault, Rt. periurethral abrasion noted with good hemostasis. No repair indicated. Vaginal sweep negative. Sponge count correct. Baby to breast, [id number] and bonding initiated. Matt Barber APRN-KINZA Presentation: Vertex, JAMISON Placental Delivery Description: Spontaneous Placenta Disposition: [facility] Cord Vessel Description: 3 Vessels Cord Entanglement: None Estimated Blood Loss: 150 Infant A gender: Male (1 minute): 8 (5 minute): 9 Episiotomy Description: None Laceration: None Medications given after delivery: IV Pitocin Complications: None 02/19/18 1200 <Electronically signed by Matt Barber CNM> Date Matt Barber CNM CC: KINZA Barber; Lam Lozano MD; Jennifer Harrell MD Signed HISTORY AND PHYSICAL Observed: 02/19/2018 Status: F Source: [place] EXAM 9:02 AM [facility] REPOSITORY [facility] Medical Records Department [address] [place] [address] History and Physical 02/19/18 0854 MR#: [id number] Acct: [id number] Name: BONNIE STALLWORTH Rep #: [id number] : 1995 22 From: Matt Barber CNM PCP: Lam Lozano MD Status: ADM IN Y Location: [id number] History Date of Admission: 02/19/18 Final MAYKEL: 02/17/18 Final MAYKEL Source: US <20 weeks Gestational age: 40 Weeks and 2 Days History of this : This is a 22 year-old, G [1], P [0], at 40 weeks gestational age presenting to triage for evaluation of labor. Patient reports regular ctx started at 0300 this morning and are now 2-5 minutes apart. Patient denies VB or vaginal discharge. +FM noted. care initiated at 7 weeks x 15 visits and has had an uncomplicated course. Allergies No Known Allergies Allergy (Verified 02/19/18 08:25) Home Medications: Home Medications Acyclovir [Zovirax] 400 mg PO TID 02/06/18 Ferrous Sulfate 325 mg PO DAILY 02/06/18 Vits [Prenatabs FA ] 1 tablet PO DAILY 02/06/18 Smoking Status: Never smoker Alcohol: None Number of Fetus(es): 1 Heart Tracin baseline, moderate variability, + accels, no decels noted TOCO Analysis: 2-4 minutes, palpate moderately strong History Past Pregnancies: Past Pregnancies Delivery Name GA/Weeks Outcome Route WeiInfant GeLabor LenAnesthesiDelivery Provider FOB Date ght nder gth a Location Labs: GBS pos, Urine Tox NEg, Urine Culture neg, Rubella Imm, HIV NEg, HepBsag Neg, Syphilis Neg, H/H = /35.2, GC/CT = Neg, 1 hour GTT = WNL Expected Delivery Method: Spontaneous Vaginal Describe any other labor AND delivery plans:: Epidural, Vaginal Delivery Number of Visits: 15 Review of Systems Constitutional: Denies: Chills, Fever, Weight Change HEENT: Denies: Head Aches, Sinus Congestion, Sinus Drainage Cardiovascular: Denies: Chest Pain, Palpitations Respiratory: Denies: Cough, Shortness of breath at rest, Sputum production Gastrointestinal: Reports: Abdominal Pain - Regular ctx noted. Denies: Nausea, Vomiting Genitourinary: Denies: Dysuria Gynecological: Reports: Vaginal discharge Musculoskeletal: Denies: Joint Pain, Joint Tenderness Skin: Denies: Rash, Wounds Neurological: Denies: Numbness, Tingling, Focal weakness Psychiatric: Denies: Anxiety, Depression, Homicidal Ideations, Suicidal Ideations Hematologic/ Lymphatic: Denies: Easy Bruising, Easy Bleeding Physical Exam Vitals: Normotensive and afebrile General: Alert, Oriented x3, No apparent distress HEENT: Atraumatic, Normocephalic. Negative for: Thyromegaly, Lymphadenopathy Cardiovascular: Regular rate, Regular Rhythm Lungs: Clear to auscultation Abdomen: Bowel Sounds Present, Gravid Neurological: Deep Tendon Reflexes 2+/4 and Symmetrical, Neuro grossly intact TAILER OUT: Normal external genitalia. Negative for: Vulvar lesions Assessment/Plan This is a 22 year-old, G [1], P [0], at 40 weeks gestational age, Active Labor, Category I FHT. P: 1) Admit for labor - Dr. Horta aware of admission 2) Epidural on request 3) Anticpate Matt CORRALES 02/19/18 0902 <Electronically signed by Matt Barber CNM> Date Matt Barber CNM Cosigner Signature: Date (if applicable) CC: KINZA Barber; Lam Lozano MD Signed CBC-COMPLETE BLOOD CNT Collected: 02/19/2018 Status: F Source: [place] NO DIFF 8:00 AM [facility] REPOSITORY TYPE CODE TESTS RESULT OUT OF RANGE REFERENCE UNITS LAB L100.1000 4.4-11.0 K/mm3 Normal WBC 10.4 LAB L100.1200 4.2-5.4 M/mm3 Low RBC 3.98 LAB L100.1300 12.0-15.0 g/dl Low HGB 11.4 LAB L100.1400 37-47 % Low HCT 33.8 LAB L100.1500 81-99 fL Normal MCV 84.9 LAB L100.1600 27.0-32.0 pg Normal MCH 28.6 LAB L100.1700 32-36 g/gl Normal MCHC 33.7 LAB L100.1810 11.6-14.6 % Normal RDW CV 12.7 LAB L100.1820 35.1-43.9 fl Normal RDW SD 38.2 LAB L100.1900 150-450 K/mm3 Normal PLT 256 LAB L100.2000 6.2-12.0 fl Normal MPV 10.2 Performed By: #### L100.0500 #### [facility] [address] [place], [address] TYPE AND SCREEN Collected: 02/19/2018 Status: F Source: [place] 8:00 AM [facility] REPOSITORY Order Comment: Reason for Type AND Screen/Red Cells: ROUTINE TYPE CODE TESTS RESULT OUT OF RANGE REFERENCE UNITS LAB B10.0800 O Normal BLOOD TYPE GEL POSITIVE LAB B100.4000 Normal Antibody NEGATIVE Screen Performed By: #### B101.7450 #### [facility] [address] [place], [address] HOSP Observed: 02/19/2018 Status: COMPLETED Source: [place] 12:00 AM [facility] REPOSITORY Patient Update (WOOB) BONNIE STALLWORTH ([id number]) 1995 F Date Time Provider Department 02/19/18 MATT BARBER) YEISON During your visit today, we recorded the following information about you: Nina Willams LPN 02/19/2018 2:40 PM Signed Pt delivered via at [facility] on 02/19/18 per Matt Barber CNM. See OB Outcome note. Nina Willams LPN Allergies As of Date: 02/19/2018 (No Known Allergies) Date Reviewed: 02/16/2018 Reviewed by: Matt Barber - Fully Assessed Prescriptions as of 02/19/2018 Sig: ACYCLOVIR 400 MG TABLET Take 1 tablet by mouth three * FERROUS SULFATE 325 MG (65 MG* Take 1 tablet by mouth twice * PRE-EMELYN MULTIVITAMINS/MINERAL* Take by mouth. Problem List As Of Date 02/19/2018 Noted Resolved Sprain of ankle, unspecified site [S93.409A] INVALID FOR*02/09/2018 Ankle pain [M25.579] INVALID FOR*02/09/2018 Herpes, vulvovaginitis [A60.04] INVALID FOR* More... Iron deficiency anemia during [O99.01*INVALID FOR* More... Positive GBS test [B95.1] INVALID FOR* Encounter Status:Closed by NINA WILLAMS LPN on 02/19/18 PROGRESS Observed: 02/16/2018 Status: COMPLETED Source: [place] 10:08 PM [facility] REPOSITORY HNO ID: [id number] Author: Matt Shipley) Sunil Service: (none) Author Type: Qc Tech Type: Progress Notes Filed: 02/16/2018 10:17 PM Note Text: CM - S: Bonnie Stallworth presents for a routine OB visit at 39w6d. She denies LOF, VB, DFM or cramping/contractions. Patient reports feeling increased pelvic pressure and increased frequency of contractions. O: See flow sheet Gen: A+O x 3, NAD Abdomen: NT x 4 quadrants, S=D Extremities: Trace pedal edema, +2/4 reflexes in LE SVE = 1/70/-2, membranes sweep done per provider preference A/P: 39w6d IUP. Normal . RTO 1 Week for follow up. Call with LOF, VB, DFM or cramping/contractions. 1. 39 weeks gestation of -[facility] teaching and Labor Precautions reviewed -RTC in <1 week for visit - URINE OB DIP B/O Matt Barber APRN.CNM PROGRESS Observed: 01/29/2018 Status: COMPLETED Source: [place] 11:47 AM [facility] REPOSITORY HNO ID: [id number] Author: Robert Vargas Service: (none) Author Type: Physician Type: Progress Notes Filed: 01/29/2018 11:47 AM Note Text: Please see ultrasound report for details of this visit. Robert Vargas M.D. GROUP B STREP PCR Collected: 01/19/2018 Status: F Source: [place] 3:05 PM [facility] REPOSITORY TYPE CODE TESTS RESULT OUT OF RANGE REFERENCE UNITS LAB GBPCRT Positive for Abnormal Group B Alert GROUP B Streptococcus by STREP PCR PCR. If susceptibility testing is needed and was not requested with initial test order, call lab ([phone]) within 5 days to initiate workup. Performed By: #### GBPCR #### [facility] [address] [place], [place] [address] PROGRESS Observed: 01/05/2018 Status: COMPLETED Source: [place] 2:48 PM [facility] REPOSITORY HNO ID: [id number] Author: Matt Barber Service: (none) Author Type: Qc Tech Type: Progress Notes Filed: 01/05/2018 3:18 PM Note Text: Patient identified by name and date of . Bonnie Stallworth presents today for a vaccination of Tdap. Patient denies an allergy to latex: no-single dose vial administered Patient denies a severe (life-threatening) allergy to a previous dose of Tdap, DTP, DTaP, DT or Td vaccine. o Patient denies history of epilepsy or neurological problems: No Patient is afebrile and denies being moderately or severely ill: No Patient denies history of Guillain-[place]bond[place] Syndrome (a severe paralytic illness): No Tdap Adacel injection was given without incident. See immunizations for details of immunizations administered today. VIS sheet provided: Yes Provider Matt Barber was present in office at time of injection. Daphnie Russ RN GROUP A STREP BY Collected: 12/23/2017 Status: F Source: [place] PCR 10:30 AM [facility] TE[facility] REPOSITORY TYPE CODE TESTS RESULT OUT OF REFERENCE UNITS RANGE LAB GASSRC Throat Swab GAS Specimen Source LAB PCRGAS Negative for Group A Strep Group A PCR Streptococcus by PCR. Result Comment: This test was developed and its performance characteristics determined by [facility]'s Luis Menendez [facility] Yolyn ([facility]). It has not been cleared or approved by the FDA. [facility] is regulated under CLIA as qualified to perform high-complexity testing. This test is used for clinical purposes. It should not be regarded as inv estigational or for research. Performed By: #### GASPCR #### [facility] [address] [place], [place] [address] PROGRESS Observed: 12/23/2017 Status: COMPLETED Source: [place] 10:10 AM [facility] REPOSITORY HNO ID: [id number] Author: Allison Houser Service: (none) Author Type: Nurse Practitioner Type: Progress Notes Filed: 12/23/2017 10:47 AM Note Text: Subjective HPI HPI Bonnie Stallworth is a 22 year old female who presents today for CC of sore throat, sinus congestion. This started 2-3 days ago. Has tried tylenol for relief. Symptoms are worsened by nothing. Risk factors no sick contacts, patient is 32 weeks /uncomplicated. .Patient presents with: Sinus Problem: pressure and some dranage, headache and sore throat x 3 days-32 weeks PAST MEDICAL HISTORY Diagnosis Date - Herpes, vulvovaginitis 07/22/2017 - Iron deficiency anemia during 11/26/2017 - NEGATIVE MEDICAL HISTORY - Trauma PAST SURGICAL HISTORY Procedure Laterality Date - NONE ALLERGIES Patient has no known allergies. MEDICATIONS ferrous sulfate 325 mg (65 mg iron) tablet Take 1 tablet by mouth twice daily. PNV/IRON/OMEGA3/FOLIC AC/F.A.1 (PRE-EMELYN MULTIVITAMINS/MINERALS ORAL) Take by mouth. No family history on file. Social History Substance Use Topics - Smoking status: Passive Smoke Exposure - Never Smoker - Smokeless tobacco: Never Used Comment: mom and dad smoke - Alcohol use No Review of Systems Constitutional: Negative for chills, fever and weight loss. HENT: Positive for congestion and sore throat. Negative for ear pain and nosebleeds. Respiratory: Negative for cough, shortness of breath and wheezing. Cardiovascular: Negative for chest pain. Musculoskeletal: Negative for neck pain. Skin: Negative for itching and rash. Neurological: Positive for headaches (intermittent). Objective Blood pressure 110/80, pulse 78, temperature 36.6 ?C (97.9 ?F), temperature source Tympanic, resp. rate 18, weight 64.9 kg (143 lb), last menstrual period 05/07/2017, SpO2 99 %, unknown if currently . Physical Exam Constitutional: She is oriented to person, place, and time and well-developed, well-nourished, and in no distress. Non-toxic appearance. She does not have a sickly appearance. No distress. HENT: Head: Normocephalic and atraumatic. Right Ear: Hearing, tympanic membrane, external ear and ear canal normal. Left Ear: Hearing, tympanic membrane, external ear and ear canal normal. Nose: Nose normal. Mouth/Throat: Uvula is midline and mucous membranes are normal. Posterior oropharyngeal erythema present. No oropharyngeal exudate, posterior oropharyngeal edema or tonsillar abscesses. Eyes: Pupils are equal, round, and reactive to light. Conjunctivae and lids are normal. Right eye exhibits no discharge. Left eye exhibits no discharge. No scleral icterus. Neck: Trachea normal and normal range of motion. Neck supple. Cardiovascular: Normal rate, regular rhythm and normal heart sounds. Pulmonary/Chest: Effort normal and breath sounds normal. Lymphadenopathy: She has cervical adenopathy. Right cervical: Superficial cervical adenopathy present. Left cervical: Superficial cervical adenopathy present. Neurological: She is alert and oriented to person, place, and time. Skin: No rash noted. She is not diaphoretic. ASSESSMENT/PLAN: 1. Sore throat - ICD9: 462, ICD10: J02.9 (primary diagnosis) - suspect viral - Rapid Strep negative in the office today and Throat culture pending - Discussed supportive care treatment with fluids, rest and analgesia. - The patient should follow up in 3-5 days if symptoms persist or worsen - Call back if drooling, increased temperature, symptoms of dehydration and/or still sick in one week - RAPID STREP TEST B/O - negative - GROUP A STREPTOCOCCUS BY PCR 2. URI, acute - ICD9: 465.9, ICD10: J06.9 - Discussed viral etiology and rationale for treatment. - Rapid strep negative in office today - Symptomatic treatment with prn analgesia - Supportive care with fluids and rest - Follow up in 5-7 days if symptoms persist or sooner if worsening of symptoms -follow clinical exercise specialist recommendations for UTI treatment during . Prescription instructions reviewed with patient as applicable. Patient advised if symptoms do not improve or if symptoms worsen sooner, to contact the office for further evaluation by their primary care physician. Potential red flag symptoms discussed with the patient. Reviewed appropriate action plan to take if red flag symptoms occur. Patient agreeable to treatment plan. Allison Houser APRN.CNP CNOV Observed: 12/23/2017 Status: COMPLETED Source: [place] 9:45 AM [facility] REPOSITORY Office Visit (WSTR) BONNIE STALLWORTH ([id number]) 1995 F Date Time Provider Department 12/23/17 9:45 AM ALLISON HOUSER (CHRISTIAN[facility]) [facility] During your visit today, we recorded the following information about you: Temperature Pulse Respiration Blood pressure 97.9 degrees 78/minute 18/minute 110/80 Weight 64.9 kg Allison Houser APRN.CNP 12/23/2017 10:47 AM Signed Subjective HPI HPI Bonnie Stallworth is a 22 year old female who presents today for CC of sore throat, sinus congestion. This started 2-3 days ago. Has tried tylenol for relief. Symptoms are worsened by nothing. Risk factors no sick contacts, patient is 32 weeks /uncomplicated. .Patient presents with: Sinus Problem: pressure and some dranage, headache and sore throat x 3 days-32 weeks PAST MEDICAL HISTORY Diagnosis Date - Herpes, vulvovaginitis 07/22/2017 - Iron deficiency anemia during 11/26/2017 - NEGATIVE MEDICAL HISTORY - Trauma PAST SURGICAL HISTORY Procedure Laterality Date - NONE ALLERGIES Patient has no known allergies. MEDICATIONS ferrous sulfate 325 mg (65 mg iron) tablet Take 1 tablet by mouth twice daily. PNV/IRON/OMEGA3/FOLIC AC/F.A.1 (PRE-EMELYN MULTIVITAMINS/MINERALS ORAL) Take by mouth. No family history on file. Social History Substance Use Topics - Smoking status: Passive Smoke Exposure - Never Smoker - Smokeless tobacco: Never Used Comment: mom and dad smoke - Alcohol use No Review of Systems Constitutional: Negative for chills, fever and weight loss. HENT: Positive for congestion and sore throat. Negative for ear pain and nosebleeds. Respiratory: Negative for cough, shortness of breath and wheezing. Cardiovascular: Negative for chest pain. Musculoskeletal: Negative for neck pain. Skin: Negative for itching and rash. Neurological: Positive for headaches (intermittent). Objective Blood pressure 110/80, pulse 78, temperature 36.6 ?C (97.9 ?F), temperature source Tympanic, resp. rate 18, weight 64.9 kg (143 lb), last menstrual period 05/07/2017, SpO2 99 %, unknown if currently . Physical Exam Constitutional: She is oriented to person, place, and time and well-developed, well-nourished, and in no distress. Non-toxic appearance. She does not have a sickly appearance. No distress. HENT: Head: Normocephalic and atraumatic. Right Ear: Hearing, tympanic membrane, external ear and ear canal normal. Left Ear: Hearing, tympanic membrane, external ear and ear canal normal. Nose: Nose normal. Mouth/Throat: Uvula is midline and mucous membranes are normal. Posterior oropharyngeal erythema present. No oropharyngeal exudate, posterior oropharyngeal edema or tonsillar abscesses. Eyes: Pupils are equal, round, and reactive to light. Conjunctivae and lids are normal. Right eye exhibits no discharge. Left eye exhibits no discharge. No scleral icterus. Neck: Trachea normal and normal range of motion. Neck supple. Cardiovascular: Normal rate, regular rhythm and normal heart sounds. Pulmonary/Chest: Effort normal and breath sounds normal. Lymphadenopathy: She has cervical adenopathy. Right cervical: Superficial cervical adenopathy present. Left cervical: Superficial cervical adenopathy present. Neurological: She is alert and oriented to person, place, and time. Skin: No rash noted. She is not diaphoretic. ASSESSMENT/PLAN: 1. Sore throat - ICD9: 462, ICD10: J02.9 (primary diagnosis) - suspect viral - Rapid Strep negative in the office today and Throat culture pending - Discussed supportive care treatment with fluids, rest and analgesia. - The patient should follow up in 3-5 days if symptoms persist or worsen - Call back if drooling, increased temperature, symptoms of dehydration and/or still sick in one week - RAPID STREP TEST B/O - negative - GROUP A STREPTOCOCCUS BY PCR 2. URI, acute - ICD9: 465.9, ICD10: J06.9 - Discussed viral etiology and rationale for treatment. - Rapid strep negative in office today - Symptomatic treatment with prn analgesia - Supportive care with fluids and rest - Follow up in 5-7 days if symptoms persist or sooner if worsening of symptoms -follow clinical exercise specialist recommendations for UTI treatment during . Prescription instructions reviewed with patient as applicable. Patient advised if symptoms do not improve or if symptoms worsen sooner, to contact the office for further evaluation by their primary care physician. Potential red flag symptoms discussed with the patient. Reviewed appropriate action plan to take if red flag symptoms occur. Patient agreeable to treatment plan. TIA Owens APRN.CNP 12/23/2017 10:30 AM Signed ASSESSMENT/PLAN: 1. Sore throat - ICD9: 462, ICD10: J02.9 - suspect viral - Rapid Strep negative in the office today and Throat culture pending - Discussed supportive care treatment with fluids, rest and analgesia. - The patient should follow up in 3-5 days if symptoms persist or worsen - Call back if drooling, increased temperature, symptoms of dehydration and/or still sick in one week Referring Provider: SELF [200] Allergies As of Date: 12/23/2017 (No Known Allergies) Date Reviewed: 12/23/2017 Reviewed by: Allison (Christiano) - Fully Assessed Reason for Visit: Sinus Problem [99] Cmt: pressure and some dranage, headache and sore throat x 3 days-32 weeks Primary Visit Diagnosis:Sore throat [J02.9] Other Visit Diagnosis:URI, acute [J06.9] Order(s):RAPID STREP TEST B/O [7776602] Order #: [id number] GROUP A STREPTOCOCCUS BY PCR [SQGASPCR] Order #: [id number] Prescriptions as of 12/23/2017 Sig: FERROUS SULFATE 325 MG (65 MG* Take 1 tablet by mouth twice * PRE-EMELYN MULTIVITAMINS/MINERAL* Take by mouth. Problem List As Of Date 12/23/2017 Noted Resolved Unspecified site of ankle sprain and strain [S9*INVALID FOR* Ankle pain [M25.579] INVALID FOR* Herpes, vulvovaginitis [A60.04] INVALID FOR* More... Iron deficiency anemia during [O99.01*INVALID FOR* More... Other instructions from your clinician: ASSESSMENT/PLAN: 1. Sore throat - ICD9: 462, ICD10: J02.9 - suspect viral - Rapid Strep negative in the office today and Throat culture pending - Discussed supportive care treatment with fluids, rest and analgesia. - The patient should follow up in 3-5 days if symptoms persist or worsen - Call back if drooling, increased temperature, symptoms of dehydration and/or still sick in one week Encounter Status:Closed by ALLISON HOUSER CNP on 12/23/17 CBC AND DIFFERENTIAL Collected: 12/22/2017 Status: F Source: [place] 3:52 PM [facility] REPOSITORY TYPE CODE TESTS RESULT OUT OF REFERENCE UNITS RANGE LAB WBC 3.70-11.00 k/uL WBC 9.12 LAB RBC 3.90-5.20 m/uL Low RBC 3.69 LAB HGB 11.5-15.5 g/dL Low Hemoglobin 11.0 LAB HCT 36.0-46.0 % Low Hematocrit 33.7 LAB MCV 80.0-100.0 fL MCV 91.3 LAB MCH 26.0-34.0 pG MCH 29.8 LAB MCHC 30.5-36.0 g/dL MCHC 32.6 LAB RDWCV 11.5-15.0 % RDW-CV 12.7 LAB PLTCT 150-400 k/uL Platelet Count 242 LAB MPV 9.0-12.7 fL MPV 9.3 LAB ANEUT % Neut% 75.6 LAB AANEUT 1.45-7.50 k/uL Abs Neut 6.89 LAB ALYMP % Lymph% 16.4 LAB AALYMP 1.00-4.00 k/uL Abs Lymph 1.50 LAB AMONO % [place]% 6.9 LAB AAMONO <0.87 k/uL Abs [place] 0.63 LAB AEOS % Eosin% 0.8 LAB AAEOS <0.46 k/uL Abs Eosin 0.07 LAB ABASO % Baso% 0.3 LAB AABASO <0.11 k/uL Abs Baso 0.03 LAB AUNRBC 0 /100 WBC NRBCs 0.0 LAB ABNRBC <0.01 k/uL Absolute nRBC <0.01 LAB DTYP DTYPE Auto Diff Performed By: #### CBCDIF #### [facility] [address] [place] [phone] PROGRESS Observed: 12/22/2017 Status: COMPLETED Source: [place] 2:53 PM [facility] REPOSITORY HNO ID: [id number] Author: Zeinab Resendiz Ma Service: (none) Author Type: (none) Type: Progress Notes Filed: 12/22/2017 3:31 PM Note Text: 22 year old female here for INACTIVATED INFLUENZA VACCINE. 7834-9762 Season Patient is identified by name and date of : Yes [] CONTRAINDICATIONS color enhanced section Age less than 6 months? No Allergy to eggs, chicken, chicken feathers, or chicken dander? No Allergy to thimerosal (a preservative) or formaldehyde, gelatin? No History of severe reaction to any vaccine component or a previous dose of influenza vaccination? No History of Guillain-[place]bond[place] Syndrome within 6 weeks after a previous influenza vaccine? No Patient is not moderately or severely ill? No Current temperature greater or equal to 100.4F? No History of Bone Marrow Transplant prior 6 months or solid organ transplant in the past 3 months ? No History of fainting after a prior injection or medical procedure? No- ? If patient has fainted in the past, the CDC recommends sitting or lying down for 15 minutes after the vaccination. [] VERIFICATION color enhanced section Was the answer Yes for any of the above contraindications? No contraindications present. Acceptable to proceed with vaccine. Patient/guardian agrees the above answers are true to the best of their knowledge? Yes Flu vaccine information sheet given? Yes [facility] for details of immunizations adminstered today. Patient age: [age] year old For The 7685-5030 Flu Season 6-35 months old: Fluzone 0.25 ml - IM (Preservative Free) 3 years of age: Fluzone 0.5 ml - IM (Preservative Free) 3 years and older: Fluzone 0.5 ml- IM-(with Preservatives) 65+ years old: 2-49 years old Fluzone High-Dose 0.5 ml - IM (Preservative Free) FLUMIST- intranasal REMEMBER: If patient is less than 9 years of age and this is the first vaccine of Influenza to be received in any flu season, they should receive a second dose in one months time. IRON AND TIBC Collected: 11/26/2017 Status: F Source: [place] 4:17 PM [facility] REPOSITORY TYPE CODE TESTS RESULT OUT OF REFERENCE UNITS RANGE LAB IRN 41-186 ug/dL Iron 66 LAB TIBC 232-386 ug/dL TIBC High 441 LAB SAT 15-57 % Transferrin Saturatn 15 Performed By: #### IRON, FERR #### [facility] [address] [place], [place] [id number] FERRITIN Collected: 11/26/2017 Status: F Source: [place] 4:17 PM [facility] REPOSITORY TYPE CODE TESTS RESULT OUT OF REFERENCE UNITS RANGE LAB FERR 14.7-205.1 ng/mL Ferritin 15.3 Performed By: #### IRON, FERR #### [facility] [address] [place] [address] CBC AND DIFFERENTIAL Collected: 11/25/2017 Status: F Source: [place] 2:10 PM [facility] REPOSITORY TYPE CODE TESTS RESULT OUT OF REFERENCE UNITS RANGE LAB WBC 3.70-11.00 k/uL WBC 8.77 LAB RBC 3.90-5.20 m/uL Low RBC 3.39 LAB HGB 11.5-15.5 g/dL Low Hemoglobin 10.0 LAB HCT 36.0-46.0 % Low Hematocrit 30.8 LAB MCV 80.0-100.0 fL MCV 90.9 LAB MCH 26.0-34.0 pG MCH 29.5 LAB MCHC 30.5-36.0 g/dL MCHC 32.5 LAB RDWCV 11.5-15.0 % RDW-CV 12.1 LAB PLTCT 150-400 k/uL Platelet Count 255 LAB MPV 9.0-12.7 fL MPV 9.0 LAB ANEUT % Neut% 75.3 LAB AANEUT 1.45-7.50 k/uL Abs Neut 6.60 LAB ALYMP % Lymph% 18.0 LAB AALYMP 1.00-4.00 k/uL Abs Lymph 1.58 LAB AMONO % [place]% 5.6 LAB AAMONO <0.87 k/uL Abs [place] 0.49 LAB AEOS % Eosin% 1.0 LAB AAEOS <0.46 k/uL Abs Eosin 0.09 LAB ABASO % Baso% 0.1 LAB AABASO <0.11 k/uL Abs Baso <0.03 LAB AUNRBC 0 /100 WBC NRBCs 0.0 LAB ABNRBC <0.01 k/uL Absolute nRBC <0.01 LAB DTYP DTYPE Auto Diff Performed By: #### CBCDIF #### [facility] [address] [place] [address] 50G, 1HR GEST. Collected: 11/25/2017 Status: F [facility] REPOSITORY TYPE CODE TESTS RESULT OUT OF REFERENCE UNITS RANGE LAB GLUP 74-134 mg/dL Glucose 110 Screen, Preg Result Comment: [place] [employer] of [employer]etric[employer] and Gynec[employer] ([place]ou[place]) guidelines state a gestational diabetes mellitus positive screen is made, in women not previously diagnosed with overt diabetes, when the 1 hr plasma glucose level is equal to or above 140 mg/dL. The [facility] Yolyn recommends a 135 mg/dL cutoff. Performed By: #### GLTGST #### [facility] [place] [address] CNCO Observed: 10/29/2017 Status: COMPLETED Source: [place] 12:00 AM [facility] REPOSITORY Letter Text [facility] [address], [place] [address] 10/29/2017 RE: Bonnie Ramseycolton : 1995 To Whom It May Concern: This is to verify that the above captioned patient is with a feng interuterine pregnancyand her Estimated Date of Delivery: 02/17/18. Sincerely, America Horta MD PROGRESS Observed: 09/29/2017 Status: COMPLETED Source: [place] 11:02 AM [facility] REPOSITORY HNO ID: [id number] Author: Dimas Martínez Service: (none) Author Type: Physician Type: Progress Notes Filed: 09/29/2017 11:04 AM Note Text: A feng? fetus in utero with symmetric measurements Adequate growth (AGA). Estimated Date of Delivery: 02/17/18 EGA = 19w6d The anatomy appears normal. There are no evident malformations and /or effusions. No genetic markers are noted. The amniotic fluid volume is within normal limits. The sensitivity of ultrasound in the detection of malformations overall is approximately 35%. RECOMMENDATIONS: - Follow up ultrasound as clinically indicated SEQUENT SCRN SECOND Collected: 09/08/2017 Status: F Source: [place] [facility] PATIENTS ONLY 1:45 PM [facility] REPOSITORY TYPE CODE TESTS RESULT OUT OF REFERENCE UNITS RANGE LAB SE1PAP MoM 0.92 SE1 LOLY A LAB SE2AFP MoM 1.27 SE2 AFP LAB SE2HCG MoM 1.10 SE2 hCG LAB SE2UE3 MoM 1.28 SE2 Unconj uE3 LAB SE2INH MoM 0.92 SE2 Dimrc Inhibin A LAB SE1HCG MoM 0.97 SE1 hCG LAB SE2INT Screen Negative SE2 Interp Screen Negative LAB SE2SDN SE2 Scrn Rsk <1:22645 Dn Synd LAB SE2ADN SE2 Age Rsk 1:1100 Dn Snyd LAB SE2STS SE2 Scr Rsk <1:98957 Trsmy 13 LAB SE2STR SE2 Scr Rsk <1:16734 Trsmy18 LAB SE2SON SE2 Scr Rsk 1:4600 ONTD LAB SE2RS View Seq Scrn results in Second Trim Scanned Documents link when available. LAB SEQLRV SEQ Staff Reviewed by Review Yuliya Love, Ph.D. Performed By: #### SEQL2 #### [facility] [address] [place], [place] [address] Observed: 09/01/2017 Status: F Source: [place] URINE CULTURE 10:15 AM [facility] REPOSITORY Sp. Request/Comment: - Specimen received in preservative Culture Result - No growth (<1,000 CFU/ml) Performed By: #### URCUL #### [facility] [address] [place] [id number] PROGRESS Observed: 08/04/2017 Status: COMPLETED Source: [place] 4:35 PM [facility] REPOSITORY HNO ID: [id number] Author: Robert Vargas Service: (none) Author Type: Physician Type: Progress Notes Filed: 08/04/2017 4:36 PM Note Text: Please see ultrasound report for details of this visit. Robert Vargas M.D. PROGRESS Observed: 08/04/2017 Status: COMPLETED Source: [place] 10:58 AM [facility] REPOSITORY HNO ID: [id number] Author: Matt Shipley) Sunil Service: (none) Author Type: Qc Tech Type: Progress Notes Filed: 08/04/2017 10:59 AM Note Text: CM - S: Bonnie Stallworth presents with FOB and family friend for a routine OB visit at 11w6d. She denies LOF, VB, DFM or cramping/contractions. MAYKEL change today based on 1st trimester NT scan = 02/18/18. Family friend has many questions re: GBS screening in , wants to make sure Bonnie will be screened for GBS. O: See flow sheet Gen: A+O x 3, NAD Abd: NT x 4 quadrants, S=D Extremities: No edema A/P: 11w6d IUP. Normal . RTO 4 Weeks for follow up. Call with LOF, VB, DFM or cramping/contractions. 1. Encounter for supervision of normal first in first trimester -Diet and Exercise in reviewed. - URINE OB DIP B/O - SEQUENTIAL SCRN FRST TRIMESTER; Future - SEQUENTIAL SCRN SCND TRIME[place]; Future 2. 12 weeks gestation of -NT scan done today with 1st trimester portion of sequential screening - URINE OB DIP B/O - SEQUENTIAL SCRN FRST TRIMESTER; Future - SEQUENTIAL SCRN SCND TRIMESTER; Future Matt Barber, GALEN.CNRoel SEQUENT SCRN FIRST Collected: 08/04/2017 Status: F Source: [place] [facility] PATIENTS ONLY 10:15 AM [facility] REPOSITORY TYPE CODE TESTS RESULT OUT OF REFERENCE UNITS RANGE LAB SE1PAP MoM 0.94 SE1 LOLY A LAB SE1HCG MoM 0.98 SE1 hCG LAB SE1INT Final result pending second Final trimester SE1 result pending sample Interp second trimester sample LAB SE1SDN SE1 Scrn 1:9600 Rsk Dn Synd LAB SE1ADN 1:840 SE1 Age Rsk Dn Synd LAB SE1STR SE1 Scr <1:33916 Rsk Trsmy18 LAB SE1ATR SE1 Age 1:2500 Rsk Trsmy18 LAB SE1RS View Seq Scrn results in First Trim Scanned Documents link when available. LAB SEQLRV SEQ Staff Reviewed by Review Yuliya Love, Ph.D. Performed By: #### SEQL1 #### [address] [address] CBC Collected: 08/04/2017 Status: F Source: [place] 10:14 AM [facility] REPOSITORY TYPE CODE TESTS RESULT OUT OF REFERENCE UNITS RANGE LAB WBC 3.70-11.00 k/uL WBC 8.70 LAB RBC 3.90-5.20 m/uL RBC 4.07 LAB HGB 11.5-15.5 g/dL Hemoglobin 12.1 LAB HCT 36.0-46.0 % Low Hematocrit 35.2 LAB MCV 80.0-100.0 fL MCV 86.5 LAB MCH 26.0-34.0 pG MCH 29.7 LAB MCHC 30.5-36.0 g/dL MCHC 34.4 LAB RDWCV 11.5-15.0 % RDW-CV 12.6 LAB PLTCT 150-400 k/uL Platelet Count 271 LAB MPV 9.0-12.7 fL MPV 10.1 LAB ABSNUC <0.01 k/uL Absolute nRBC <0.01 Performed By: #### CBC, RUBIGG, HBSAG, HIV12C, SYPHGX, HSVG12, HSVM #### [facility] [address] [place], [place] [address] RUBELLA IGG ANTIBODY Collected: 08/04/2017 Status: F Source: [place] 10:14 [facility] REPOSITORY TYPE CODE TESTS RESULT OUT OF RANGE REFERENCE UNITS LAB RUBGQL Negative Abnormal Rubella IgG Positive Alert Ab, Qual Result Comment: Sample is considered positive for IgG antibodies to rubella virus. A positive result indicates previous exposure to Rubella virus or vaccination. LAB RUBQNT Index Value Rubella IgG Ab 7.64 Result Comment: Index values are interpreted as follows: Negative specimens <0.90 Equivocol specimens 0.90 to 0.99 Positive specimens >0.99 The magnitude of the measured result is not indicative of the amount of antibody present. Performed By: #### CBC, RUBIGG, HBSAG, HIV12C, SYPHGX, HSVG12, HSVM #### [facility] [address] [address] HEPATITIS B SURF. AG Collected: 08/04/2017 Status: F Source: [place] 10:14 AM [facility] REPOSITORY TYPE CODE TESTS RESULT OUT OF REFERENCE UNITS RANGE LAB HBSAG Negative Hepatitis B Negative Surf. Ag Performed By: #### CBC, RUBIGG, HBSAG, HIV12C, SYPHGX, HSVG12, HSVM #### [place] [phone] HIV 12 COMBO (AG/AB) Collected: 08/04/2017 Status: F Source: [place] 10:14 [facility] REPOSITORY TYPE CODE TESTS RESULT OUT OF REFERENCE UNITS RANGE LAB HVAGAB Non Reactive HIV Non Reactive 12 Ag/Ab Result Comment: (NOTE) HIV Information: [place] Rev. Code 3701.243(E): This information has been disclosed to you from confidential records protected from disclosure by state law. You shall make no further disclosure of this information without the specific, written, and informed release of the individual to whom it pertains, or as otherwise permitted by state law. A general authorization for the release of medical or other information is not sufficient for the purpose of the release of HIV test results or diagnoses. Performed By: #### CBC, RUBIGG, HBSAG, HIV12C, SYPHGX, HSVG12, HSVM #### [place] [address] SYPHILIS IGG WITH Collected: 08/04/2017 Status: F Source: [facility] 10:14 AM [facility] REPOSITORY TYPE CODE TESTS RESULT OUT OF REFERENCE UNITS RANGE LAB SYPHQL Nonreactive Syphilis IgG, Nonreactive Qual Result Comment: In conjunction with this result, the immune status of the patient should be evaluated based on their clinical status, related risk factors, and other diagnostic test results. LAB SYPHLG AI Syphilis IgG <0.2 Result Comment: Antibody index is interpreted as follows: Non reactive SPECIMENS <=0.8 Weak reactive SPECIMENS 0.9 to 5.9 Reactive SPECIMENS >=6.0 Performed By: #### CBC, RUBIGG, HBSAG, HIV12C, SYPHGX, HSVG12, HSVM #### [facility] [address] [place], [place] [address] HSVG TYP 1 AND 2 Collected: 08/04/2017 Status: F Source: [facility] 10:14 AM [facility] REPOSITORY TYPE CODE TESTS RESULT OUT OF REFERENCE UNITS RANGE LAB HSVG1L Negative HSV IgG 1 Qualitative Negative Result Comment: No HSV-1 IgG antibodies detected. Patient is presumed not to have had a previous HSV-1 infection. LAB HSVG1 AI Herpes Simplex IgG 1 0.6 Result Comment: INDEX VALUES ARE INTERPRETED FOLLOWS: NEGATIVE SPECIMENS <0.9 EQUIVOCAL SPECIMENS 0.9 TO 1.0 POSITIVE SPECIMENS >=1.1 LAB HSVG2L Negative HSV IgG 2 Qualitative Negative Result Comment: No HSV-2 IgG antibodies detected. Patient is presumed not to have had a previous HSV-2 infection. LAB HSVG2 AI Herpes Simplex IgG 2 <0.2 Result Comment: INDEX VALUES ARE INTERPRETED FOLLOWS: NEGATIVE SPECIMENS <0.9 EQUIVOCAL SPECIMENS 0.9 TO 1.0 POSITIVE SPECIMENS >=1.1 Performed By: #### CBC, RUBIGG, HBSAG, HIV12C, SYPHGX, HSVG12, HSVM #### [address] [place], [place] [address] HERPES SIMPLEX IGM Collected: 08/04/2017 Status: F Source: [place] 10:14 AM [facility] REPOSITORY TYPE CODE TESTS RESULT OUT OF RANGE REFERENCE UNITS LAB HSVMR Negative HSV IgM Abnormal Qualitative Positive Alert Result Comment: IgM antibodies specific to HSV-1 or HSV-2 were detected. It is not possible to distinguish between HSV-1 and HSV-2 with this test system. Positive values indicate a primary or reactivated infection with HSV-1 or HSV-2. LAB HSVMX 0-0.90 OD Ratio High Herpes Simplex 2.07 IgM Result Comment: INDEX VALUES/OD RATIOS ARE INTERPRETED FOLLOWS: NEGATIVE SPECIMENS <=0.90 EQUIVOCAL SPECIMENS 0.91 TO 1.09 POSITIVE SPECIMENS >=1.10 Performed By: #### CBC, RUBIGG, HBSAG, HIV12C, SYPHGX, HSVG12, HSVM #### [facility] [address] [place], [place] [id number] TYPE AND SCR,PRENATL Collected: 08/04/2017 Status: F Source: [place] 10:14 AM [facility] REPOSITORY TYPE CODE TESTS RESULT OUT OF REFERENCE UNITS RANGE LAB %ABR O ABO/RH(D) POSITIVE LAB % Antibody NEG Screen Performed By: #### TSPN #### [facility] [address] [place], [place] [address] TOXICOLOGY SCREEN,UR Collected: 07/22/2017 Status: F Source: [place] 3:39 PM [facility] REPOSITORY TYPE CODE TESTS RESULT OUT OF REFERENCE UNITS RANGE LAB UPCP2 Negative Negative Phencyclidin e, Urine Result Comment: Cutoff threshold at 25 ng/mL. LAB UBENZ2 Negative Benzodiazepines, Ur Negative Result Comment: Cutoff threshold at 200 ng/mL. LAB UCOC2 Negative Cocaine, Negative Urine Result Comment: Cutoff threshold at 300 ng/mL. LAB UAMPH2 Negative Amphetamines, Urine Negative Result Comment: Cutoff threshold at 1000 ng/mL. LAB UTHC2 Negative Cannabinoids, Urine Negative Result Comment: Cutoff threshold at 50 ng/mL. LAB UOPI2 Negative Opiates, Negative Urine Result Comment: Cutoff threshold at 300 ng/mL. LAB UBARB2 Negative Barbiturates, Urine Negative Result Comment: Cutoff threshold at 200 ng/mL. LAB UETOH <11 mg/dL <11 Ethanol, Urine LAB UOXYC Negative Oxycodone, Negative Urine Result Comment: Cutoff threshold at 100 ng/mL. Comment: Immunoassay screen only. Cross reactivity with other substances can occur with immunoassay screening. Detection of any drug(s) in this urine toxicology panel is presumptive only. These tests are for med ical purposes only and should not be used for compliance monitoring, legal, or forensic use. In clinical settings, confirmatory testing is at the practitioner's discretion [1]. If clinically indicated, confirmation by high specificity, quantitative methodology may be requested on the same speci men through Client Services ([phone]) if contacted within 48 hours of initial testing. [1]Substance Abuse and Mental Health Services Administration (2012). Clinical Drug Testing in Primary Care Technical Assistance Publication Series 32. Department of Health and Human Services, [place], p.10. These tests were developed and their performance characteristics determined by [facility]'s [facility] (RT PL[facility]). They have not been cleared or a pproved by the FDA. [facility] is regulated under CLIA as qualified to perform high complexity testing. These tests are used for clinical purposes. They should not be regarded as investigational or for research. Performed By: #### UTOX2 #### [facility] [address] [id number] HSV1,2/VZV AMPLIF Collected: 07/22/2017 Status: F Source: [place] 12:41 PM [facility] REPOSITORY TYPE CODE TESTS RESULT OUT OF RANGE REFERENCE UNITS LAB HVZSRC Specimen [place] Source LAB HRPSV1 Abnormal HSV Type 1, Positive for Alert HDA Herpes Simplex virus Type 1 by [facility]. LAB HRPSV2 HSV Type 2, Negative for HDA Herpes Simplex virus Type 2 by [facility]. LAB VZOSV V Zoster Negative for Virus, HDA Varicella Zoster virus by [facility]. Performed By: #### HSVVZV #### [facility] [address] [address] PROGRESS Observed: 07/06/2017 Status: COMPLETED Source: [place] 10:02 AM [facility] REPOSITORY HNO ID: [id number] Author: America Horta Service: (none) Author Type: Physician Type: Progress Notes Filed: 07/06/2017 10:27 AM Note Text: INITIAL OB ASSESSMENT OB Provider: Marga Self Ma HPI: Bonnie Stallworth is a 21 year old female here to establish Obstetrical Care. Patient's last menstrual period was 05/07/2017. from OB Dating Form. Cycle length: 30 days Complaints: vaginal bleeding - spotting- resolved about 2 wks ago. Nausea without vomiting was unplanned but accepted. Obstetric History T0 L0 SAB0 TAB0 Ectopic0 Multiple0 Live Births0 Prior : never History of 4th degree laceration: No Patient's Risk Screening for delivery: Have you had a prior feng between 20w and 36w6d?: No History of abnormal pap: No Prior treatment for cervical dysplasia: none. History of STDs: None Tobacco use: No Caffeine use: Yes Drug use: No Alcohol use: No Multivitamin with Folic acid: Yes Occupation: [employer] Denominational or heritage: No Would refuse blood transfusion if medically necessary: No BMI 22.32 kg/(m2) Patient BMI over 30? No Marital Status:Committed relationship Partner: Name: Jonathan Chacko Age: 21 Occupation: [employer] Gender: male History of STDs: None PAST MEDICAL HISTORY Diagnosis Date - NEGATIVE MEDICAL HISTORY - Trauma PAST SURGICAL HISTORY Procedure Laterality Date - NONE Current Outpatient Prescriptions on File Prior to Visit: PNV/IRON/OMEGA3/FOLIC AC/F.A.1 (PRE-EMELYN MULTIVITAMINS/MINERALS ORAL) Take by mouth. norgestimate 0.25 mg-ethinyl estradiol 35 mcg (MONO-LINYAH) 0.25-35 mg-mcg per tablet Take 1 tablet by mouth once daily. predniSONE (DELTASONE) 20 mg tablet Prednisone 40 mg (2-20mg tablets) po QD for 5 days benzonatate (TESSALON PERLE) 100 mg capsule Take 1 capsule by mouth three times daily as needed. cyclobenzaprine (FLEXERIL) 5 mg tablet Take 5 mg by mouth three times daily as needed. NAPROXEN (NAPROSYN ORAL) Take by mouth. omeprazole (PRILOSEC) 20 mg capsule Take 1 capsule by mouth twice daily. sucralfate (CARAFATE) 1 gram tablet Take 1 tablet by mouth four times daily. on an empty stomach (30 min prior to to eating) POLY-VITAMINS chewable tablet CHEW AND SWALLOW ONE TABLET ONCE A DAY No current facility-administered medications on file prior to visit. Review of Systems: GENERAL: Negative for: Fever or Chills HEENT: Negative for: Headache, Impaired Vision, Ringing in Ears, Nosebleeds NECK: Negative for: Swelling, Pain, Stiffness RESPIRATORY: Negative for: Cough, Shortness of breath, Wheezing GASTROINTESTINAL: Negative for: Heartburn, Constipation, Diarrhea, Blood in stool, Vomiting MUSCULOSKELETAL: Negative for: Muscle or joint pain, stiffness, Joint swelling NEUROLOGIC/PSYCHIATRIC: Negative for: Weakness, Paralysis, Numbness, Tingling, Tremor, Anxiety, Depression, Memory loss SKIN: Negative for: Rash, Itching GENITOURINARY: Negative for: vaginal itching, vaginal discharge, hematuria or dysuria PHYSICAL EXAM: Ht 5' 3 (1.60m) Wt 126 lb (57.2kg) LMP 05/07/2017 BMI 22.33 kg/(m2). GENERAL: pleasant female in no apparent distress DERMATOLOGY: Normal, without lesions, non-icteric and non-hirsute NECK: Supple, full range of motion, no adenopathy and thyroid normal BREAST: declined ABDOMEN: soft, non-tender and no masses NEURO: alert and oriented x3,exam grossly non-focal PELVIS: External genitalia normal without lesions. Perineal body intact. No vaginal or cervical lesions. Cervix closed. Uterus 8 week size. No adnexal masses or tenderness. Clinical Pelvimetry: Pelvimetry clinically assessed as adequate Limited OB ultrasound exam: single intrauterine and positive cardiac activity ASSESSMENT: 21 year old at 7 5 wks gestational age PLAN: 1) Patient oriented to practice. Discussed nutrition, folic acid supplementation, dietary guidelines, exercise, smoking, alcohol, caffeine, and drug use. Discussed routine OB labs including STD/HIV. Discussed aneuploidy screening options including serum screening and nuchal translucency. 2) NT ordered 3) Will check dates after NT possible adjustment of EDC- 6 wk ultrasound at ER gave edc 02/14/18 Follow up in 4 weeks or sooner prn. America Simons MD GC/CHLAMYDIA AMPLIF Collected: 07/06/2017 Status: F Source: [place] 3:14 AM [facility] REPOSITORY TYPE CODE TESTS RESULT OUT OF REFERENCE UNITS RANGE LAB GCCTSR GC/Chlam Amp Cervix Source LAB GCAMPL GC Negative Amplification for Neisseria gonorrhoeae by amplification. LAB CLAMPL Chlamydia Negative Amplif for Chlamydia trachomatis by amplification. Performed By: #### GCCT #### [facility] [address] [place], [place] [address] GROUP A STREP BY Collected: 06/28/2017 Status: F Source: [place] PCR 1:54 PM [facility] REPOSITORY TYPE CODE TESTS RESULT OUT OF REFERENCE UNITS RANGE LAB GASSRC Throat Swab GAS Specimen Source LAB PCRGAS Negative for Group A Strep Group A PCR Streptococcus by PCR. Result Comment: This test was developed and its performance characteristics determined by [facility] ([facility]). It has not been cleared or approved by the FDA. -[facility] is regulated under CLIA as qualified to perform high-complexity testing. This test is used for clinical purposes. It should not be regarded as inv estigational or for research. Performed By: #### GASPCR #### [facility] [address] [place], [place] [address] PROGRESS Observed: 06/28/2017 Status: COMPLETED Source: [place] 1:46 PM [facility] REPOSITORY HNO ID: [id number] Author: Suzan (Christiano) GALEN Segura.CHRISTIANO Service: (none) Author Type: Nurse Practitioner Type: Progress Notes Filed: 06/28/2017 2:15 PM Note Text: Subjective HPI Bonnie Stallworth is a 21 year old female who presents with cough, congestion, decreased appetite. She is 7 weeks . She was seen here 2 days ago, diagnosed with viral URI. Needs work note for today, was unable to work today. Review of Systems Constitutional: Negative. Negative for chills and fever. Pulse 88 Temp 36.7 ?C (98.1 ?F) (Left Tympanic) Resp 16 Wt 57.2 kg (126 lb) LMP 01/17/2017 PAST MEDICAL HISTORY Diagnosis Date - NEGATIVE MEDICAL HISTORY PAST SURGICAL HISTORY Procedure Laterality Date - NONE ALLERGIES Review of patient's allergies indicates no known allergies. MEDICATIONS PNV/IRON/OMEGA3/FOLIC AC/F.A.1 (PRE-EMELYN MULTIVITAMINS/MINERALS ORAL) Take by mouth. norgestimate 0.25 mg-ethinyl estradiol 35 mcg (MONO-LINYAH) 0.25-35 mg-mcg per tablet Take 1 tablet by mouth once daily. predniSONE (DELTASONE) 20 mg tablet Prednisone 40 mg (2-20mg tablets) po QD for 5 days benzonatate (TESSALON PERLE) 100 mg capsule Take 1 capsule by mouth three times daily as needed. cyclobenzaprine (FLEXERIL) 5 mg tablet Take 5 mg by mouth three times daily as needed. NAPROXEN (NAPROSYN ORAL) Take by mouth. omeprazole (PRILOSEC) 20 mg capsule Take 1 capsule by mouth twice daily. sucralfate (CARAFATE) 1 gram tablet Take 1 tablet by mouth four times daily. on an empty stomach (30 min prior to to eating) POLY-VITAMINS chewable tablet CHEW AND SWALLOW ONE TABLET ONCE A DAY No family history on file. Social History Substance Use Topics - Smoking status: Passive Smoke Exposure - Never Smoker - Smokeless tobacco: Never Used Comment: mom and dad smoke - Alcohol use No Objective Physical Exam Constitutional: She is well-developed, well-nourished, and in no distress. HENT: Head: Normocephalic. Right Ear: Tympanic membrane, external ear and ear canal normal. Left Ear: Tympanic membrane, external ear and ear canal normal. Nose: Rhinorrhea present. Mouth/Throat: Uvula is midline and mucous membranes are normal. Posterior oropharyngeal erythema present. No oropharyngeal exudate or posterior oropharyngeal edema. Eyes: Conjunctivae are normal. Right eye exhibits no discharge. Left eye exhibits no discharge. Neck: Neck supple. Cardiovascular: Normal rate, regular rhythm and normal heart sounds. Pulmonary/Chest: Effort normal and breath sounds normal. No respiratory distress. She has no wheezes. She has no rales. Lymphadenopathy: She has cervical adenopathy. Neurological: She is alert. Skin: Skin is warm and dry. No rash noted. Nursing note and vitals reviewed. ASSESSMENT/PLAN: 1. Sore throat - ICD9: 462, ICD10: J02.9 (primary diagnosis) - suspect viral - Rapid Strep negative in the office today and Throat culture pending - Discussed supportive care treatment with fluids, rest and analgesia. - The patient may also use warm salt water gargles, throat lozenges and/or OTC throat spray as needed. - Call back if drooling, increased temperature, symptoms of dehydration and/or still sick in one week - RAPID STREP TEST B/O - GROUP A STREPTOCOCCUS BY PCR 2. Viral URI with cough - ICD9: 465.9, ICD10: J06.9, B97.89 - Discussed viral etiology and rationale for treatment. - Rapid strep negative in office today - Symptomatic treatment with prn analgesia - Supportive care with fluids and rest - Follow-up with your PCP in 3-5 days if symptoms have not improved or sooner if symptoms worsen - Discussed red flags and need for immediate medical evaluation if any occur. - Discussed supportive care treatment with fluids, rest and analgesia. - Discussed expected course of illness Suzan Segura APRN.CNP CNOV Observed: 06/28/2017 Status: COMPLETED Source: [place] 1:30 PM [facility] REPOSITORY Office Visit ([facility]) BONNIE STALLWORTH ([id number]) 1995 F Date Time Provider Department 06/28/17 1:30 PM SUZAN SEGURA (CHRISTIANO) [facility] During your visit today, we recorded the following information about you: Temperature Pulse Respiration Weight 98.1 degrees 88/minute 16/minute 57.2 kg Suzan Segura APRN.CNP, APRN.CNP 06/28/2017 2:15 PM Signed Subjective HPI Bonnie Stallworth is a 21 year old female who presents with cough, congestion, decreased appetite. She is 7 weeks . She was seen here 2 days ago, diagnosed with viral URI. Needs work note for today, was unable to work today. Review of Systems Constitutional: Negative. Negative for chills and fever. Pulse 88 Temp 36.7 ?C (98.1 ?F) (Left Tympanic) Resp 16 Wt 57.2 kg (126 lb) LMP 01/17/2017 PAST MEDICAL HISTORY Diagnosis Date - NEGATIVE MEDICAL HISTORY PAST SURGICAL HISTORY Procedure Laterality Date - NONE ALLERGIES Review of patient's allergies indicates no known allergies. MEDICATIONS PNV/IRON/OMEGA3/FOLIC AC/F.A.1 (PRE-EMELYN MULTIVITAMINS/MINERALS ORAL) Take by mouth. norgestimate 0.25 mg-ethinyl estradiol 35 mcg (MONO-LINYAH) 0.25-35 mg-mcg per tablet Take 1 tablet by mouth once daily. predniSONE (DELTASONE) 20 mg tablet Prednisone 40 mg (2-20mg tablets) po QD for 5 days benzonatate (TESSALON PERLE) 100 mg capsule Take 1 capsule by mouth three times daily as needed. cyclobenzaprine (FLEXERIL) 5 mg tablet Take 5 mg by mouth three times daily as needed. NAPROXEN (NAPROSYN ORAL) Take by mouth. omeprazole (PRILOSEC) 20 mg capsule Take 1 capsule by mouth twice daily. sucralfate (CARAFATE) 1 gram tablet Take 1 tablet by mouth four times daily. on an empty stomach (30 min prior to to eating) POLY-VITAMINS chewable tablet CHEW AND SWALLOW ONE TABLET ONCE A DAY No family history on file. Social History Substance Use Topics - Smoking status: Passive Smoke Exposure - Never Smoker - Smokeless tobacco: Never Used Comment: mom and dad smoke - Alcohol use No Objective Physical Exam Constitutional: She is well-developed, well-nourished, and in no distress. HENT: Head: Normocephalic. Right Ear: Tympanic membrane, external ear and ear canal normal. Left Ear: Tympanic membrane, external ear and ear canal normal. Nose: Rhinorrhea present. Mouth/Throat: Uvula is midline and mucous membranes are normal. Posterior oropharyngeal erythema present. No oropharyngeal exudate or posterior oropharyngeal edema. Eyes: Conjunctivae are normal. Right eye exhibits no discharge. Left eye exhibits no discharge. Neck: Neck supple. Cardiovascular: Normal rate, regular rhythm and normal heart sounds. Pulmonary/Chest: Effort normal and breath sounds normal. No respiratory distress. She has no wheezes. She has no rales. Lymphadenopathy: She has cervical adenopathy. Neurological: She is alert. Skin: Skin is warm and dry. No rash noted. Nursing note and vitals reviewed. ASSESSMENT/PLAN: 1. Sore throat - ICD9: 462, ICD10: J02.9 (primary diagnosis) - suspect viral - Rapid Strep negative in the office today and Throat culture pending - Discussed supportive care treatment with fluids, rest and analgesia. - The patient may also use warm salt water gargles, throat lozenges and/or OTC throat spray as needed. - Call back if drooling, increased temperature, symptoms of dehydration and/or still sick in one week - RAPID STREP TEST B/O - GROUP A STREPTOCOCCUS BY PCR 2. Viral URI with cough - ICD9: 465.9, ICD10: J06.9, B97.89 - Discussed viral etiology and rationale for treatment. - Rapid strep negative in office today - Symptomatic treatment with prn analgesia - Supportive care with fluids and rest - Follow-up with your PCP in 3-5 days if symptoms have not improved or sooner if symptoms worsen - Discussed red flags and need for immediate medical evaluation if any occur. - Discussed supportive care treatment with fluids, rest and analgesia. - Discussed expected course of illness TIA Tipton APRN.CNP, APRN.CNP 06/28/2017 1:55 PM Signed Treatment for Viral Upper Respiratory Tract Infections Your body will kill off the virus by itself. Additionally, you can prime your body's immune system. This may help you get better more quickly. 1. Drink lots of fluids - at least one gallon of non-caffeinated liquids per day 2. Make sure you are eating well 3. Get plenty of rest - at least 8 hours of sleep per night for adults and more for children We do not have any medications that kill off these viruses. Antibiotics are used to treat bacterial infections; however, they are not active against viral infections. There are some things that might help you feel better, though. 1. Vaporizers, humidifiers, hot showers, and hot fluids help open respiratory and sinus passages 2. [place] Nasal [place] may offer relief of nasal and head congestion 3. Zafar's Vapor Rub placed on a hot towel and draped over the head may relieve congestion 4. Tylenol can help control fevers and headaches 5. Salt water gargles help relieve sore throats 6. Chloraceptic spray or throat lozenges may also help relieve sore throat symptoms Occasionally, viral infections turn into something more serious. You should see your doctor or return to the Urgent Care if: 1. You have fevers for longer than five days 2. You have fevers above 102 degrees 3. You are still sick after 10 days 4. You have shortness of breath or wheezing 5. After several days you are getting worse rather than better Referring Provider: SELF [200] Allergies As of Date: 06/28/2017 (No Known Allergies) Date Reviewed: 06/28/2017 Reviewed by: Suzan Shelby) TIA Segura - Fully Assessed Reason for Visit: work note [Other] Primary Visit Diagnosis:Sore throat [J02.9] Other Visit Diagnosis:Viral URI with cough [J06.9, B97.89] Order(s):RAPID STREP TEST B/O [[id number]] Order #: [id number] GROUP A STREPTOCOCCUS BY PCR [SQGASPCR] Order #: [id number] Prescriptions as of 06/28/2017 Sig: PRE-EMELYN MULTIVITAMINS/MINERAL* Take by mouth. NORGESTIMATE 0.25 MG-ETHINYL * Take 1 tablet by mouth once d* PREDNISONE 20 MG TABLET Prednisone 40 mg (2-20mg tabl* BENZONATATE 100 MG CAPSULE Take 1 capsule by mouth three* CYCLOBENZAPRINE 5 MG TABLET Take 5 mg by mouth three time* NAPROSYN ORAL Take by mouth. OMEPRAZOLE 20 MG CAPSULE,EFRAIN* Take 1 capsule by mouth twice* SUCRALFATE 1 GRAM TABLET Take 1 tablet by mouth four t* POLY-VITAMINS CHEWABLE TABLET CHEW AND SWALLOW ONE TABLET O* Problem List As Of Date 06/28/2017 Noted Resolved Unspecified site of ankle sprain and strain [S9*INVALID FOR* Ankle pain [M25.579] INVALID FOR* Other instructions from your clinician: Treatment for Viral Upper Respiratory Tract Infections Your body will kill off the virus by itself. Additionally, you can prime your body's immune system. This may help you get better more quickly. 1. Drink lots of fluids - at least one gallon of non-caffeinated liquids per day 2. Make sure you are eating well 3. Get plenty of rest - at least 8 hours of sleep per night for adults and more for children We do not have any medications that kill off these viruses. Antibiotics are used to treat bacterial infections; however, they are not active against viral infections. There are some things that might help you feel better, though. 1. Vaporizers, humidifiers, hot showers, and hot fluids help open respiratory and sinus passages 2. [place] Nasal [place] may offer relief of nasal and head congestion 3. Zafar's Vapor Rub placed on a hot towel and draped over the head may relieve congestion 4. Tylenol can help control fevers and headaches 5. Salt water gargles help relieve sore throats 6. Chloraceptic spray or throat lozenges may also help relieve sore throat symptoms Occasionally, viral infections turn into something more serious. You should see your doctor or return to the Urgent Care if: 1. You have fevers for longer than five days 2. You have fevers above 102 degrees 3. You are still sick after 10 days 4. You have shortness of breath or wheezing 5. After several days you are getting worse rather than better Letter Text Suzan Segura APRN.[facility] [address] [facility] [address] Dept: [phone] 06/28/2017 Bonnie Stallworth [address] [facility] [address] To Whom it May Concern: This is to certify that Bonnie Stallworth was seen at our office for medical care. Bonnie may return to work on 06/29/2017. If you have any questions please feel free to call. Sincerely: Suzan Segura APRN.OPTICAL GLASS INSPECTOR Encounter Status:Closed by SUZAN SEGURA on 06/28/17 PROGRESS Observed: 06/26/2017 Status: COMPLETED Source: [place] 6:00 PM [facility] REPOSITORY HNO ID: [id number] Author: Suzan (Christiano) APRN. ColtonOPTICAL GLASS INSPECTOR Service: (none) Author Type: Nurse Practitioner Type: Progress Notes Filed: 06/26/2017 6:21 PM Note Text: Subjective HPI Bonnie Stallworth is a 21 year old female who presents with cold symptoms. She has sore throat, head and chest and nasal congestion, cough and headache since yesterday. She is currently 6 weeks . Review of Systems Constitutional: Negative. Negative for fever. HENT: Positive for congestion, ear pain (right), sinus pain and sore throat. Respiratory: Positive for cough. Negative for shortness of breath. Cardiovascular: Positive for chest pain (with coughing). Gastrointestinal: Negative. Negative for abdominal pain, diarrhea, nausea and vomiting. Musculoskeletal: Negative. Negative for myalgias. Skin: Negative. Negative for rash. Neurological: Positive for headaches. Pulse 72 Temp 37.3 ?C (99.2 ?F) (Tympanic) Resp 20 Wt 58.1 kg (128 lb) LMP 01/17/2017 PAST MEDICAL HISTORY Diagnosis Date - NEGATIVE MEDICAL HISTORY PAST SURGICAL HISTORY Procedure Laterality Date - NONE ALLERGIES Review of patient's allergies indicates no known allergies. MEDICATIONS PNV/IRON/OMEGA3/FOLIC AC/F.A.1 (PRE-EMELYN MULTIVITAMINS/MINERALS ORAL) Take by mouth. norgestimate 0.25 mg-ethinyl estradiol 35 mcg (MONO-LINYAH) 0.25-35 mg-mcg per tablet Take 1 tablet by mouth once daily. predniSONE (DELTASONE) 20 mg tablet Prednisone 40 mg (2-20mg tablets) po QD for 5 days benzonatate (TESSALON PERLE) 100 mg capsule Take 1 capsule by mouth three times daily as needed. cyclobenzaprine (FLEXERIL) 5 mg tablet Take 5 mg by mouth three times daily as needed. NAPROXEN (NAPROSYN ORAL) Take by mouth. omeprazole (PRILOSEC) 20 mg capsule Take 1 capsule by mouth twice daily. sucralfate (CARAFATE) 1 gram tablet Take 1 tablet by mouth four times daily. on an empty stomach (30 min prior to to eating) POLY-VITAMINS chewable tablet CHEW AND SWALLOW ONE TABLET ONCE A DAY No family history on file. Social History Substance Use Topics - Smoking status: Passive Smoke Exposure - Never Smoker - Smokeless tobacco: Never Used Comment: mom and dad smoke - Alcohol use No Objective Physical Exam Constitutional: She is well-developed, well-nourished, and in no distress. HENT: Head: Normocephalic. Right Ear: Tympanic membrane, external ear and ear canal normal. Left Ear: Tympanic membrane, external ear and ear canal normal. Nose: Nose normal. No rhinorrhea. Mouth/Throat: Uvula is midline, oropharynx is clear and moist and mucous membranes are normal. Mucous membranes are not pale and not dry. No posterior oropharyngeal edema or posterior oropharyngeal erythema. Eyes: Conjunctivae are normal. Right eye exhibits no discharge. Left eye exhibits no discharge. Neck: Neck supple. Cardiovascular: Normal rate, regular rhythm and normal heart sounds. Pulmonary/Chest: Effort normal and breath sounds normal. No respiratory distress. She has no wheezes. She has no rales. Lymphadenopathy: She has no cervical adenopathy. Neurological: She is alert. Skin: Skin is warm and dry. No rash noted. Nursing note and vitals reviewed. ASSESSMENT/PLAN: 1. Viral URI with cough - ICD9: 465.9, ICD10: J06.9, B97.89 - Discussed viral etiology and rationale for treatment. - Symptomatic treatment with prn analgesia - Supportive care with fluids and rest - safe list for medications during given to patient. - Follow-up with your PCP in 3-5 days if symptoms have not improved or sooner if symptoms worsen - Discussed red flags and need for immediate medical evaluation if any occur. - Discussed supportive care treatment with fluids, rest and analgesia. - Discussed expected course of illness Suzan Segura APRN.CNP CNOV Observed: 06/26/2017 Status: COMPLETED Source: [place] 5:45 PM [facility] REPOSITORY Office Visit (WSTR) BONNIE STALLWORTH ([id number]) 1995 F Date Time Provider Department 06/26/17 5:45 PM SUZAN SEGURA ([facility]) [facility] During your visit today, we recorded the following information about you: Temperature Pulse Respiration Weight 99.2 degrees 72/minute 20/minute 58.1 kg Suzan Segura APRN.CNP, APRN.CNP 06/26/2017 6:21 PM Signed Subjective HPI Bonnie Stallworth is a 21 year old female who presents with cold symptoms. She has sore throat, head and chest and nasal congestion, cough and headache since yesterday. She is currently 6 weeks . Review of Systems Constitutional: Negative. Negative for fever. HENT: Positive for congestion, ear pain (right), sinus pain and sore throat. Respiratory: Positive for cough. Negative for shortness of breath. Cardiovascular: Positive for chest pain (with coughing). Gastrointestinal: Negative. Negative for abdominal pain, diarrhea, nausea and vomiting. Musculoskeletal: Negative. Negative for myalgias. Skin: Negative. Negative for rash. Neurological: Positive for headaches. Pulse 72 Temp 37.3 ?C (99.2 ?F) (Tympanic) Resp 20 Wt 58.1 kg (128 lb) LMP 01/17/2017 PAST MEDICAL HISTORY Diagnosis Date - NEGATIVE MEDICAL HISTORY PAST SURGICAL HISTORY Procedure Laterality Date - NONE ALLERGIES Review of patient's allergies indicates no known allergies. MEDICATIONS PNV/IRON/OMEGA3/FOLIC AC/F.A.1 (PRE-EMELYN MULTIVITAMINS/MINERALS ORAL) Take by mouth. norgestimate 0.25 mg-ethinyl estradiol 35 mcg (MONO-LINYAH) 0.25-35 mg-mcg per tablet Take 1 tablet by mouth once daily. predniSONE (DELTASONE) 20 mg tablet Prednisone 40 mg (2-20mg tablets) po QD for 5 days benzonatate (TESSALON PERLE) 100 mg capsule Take 1 capsule by mouth three times daily as needed. cyclobenzaprine (FLEXERIL) 5 mg tablet Take 5 mg by mouth three times daily as needed. NAPROXEN (NAPROSYN ORAL) Take by mouth. omeprazole (PRILOSEC) 20 mg capsule Take 1 capsule by mouth twice daily. sucralfate (CARAFATE) 1 gram tablet Take 1 tablet by mouth four times daily. on an empty stomach (30 min prior to to eating) POLY-VITAMINS chewable tablet CHEW AND SWALLOW ONE TABLET ONCE A DAY No family history on file. Social History Substance Use Topics - Smoking status: Passive Smoke Exposure - Never Smoker - Smokeless tobacco: Never Used Comment: mom and dad smoke - Alcohol use No Objective Physical Exam Constitutional: She is well-developed, well-nourished, and in no distress. HENT: Head: Normocephalic. Right Ear: Tympanic membrane, external ear and ear canal normal. Left Ear: Tympanic membrane, external ear and ear canal normal. Nose: Nose normal. No rhinorrhea. Mouth/Throat: Uvula is midline, oropharynx is clear and moist and mucous membranes are normal. Mucous membranes are not pale and not dry. No posterior oropharyngeal edema or posterior oropharyngeal erythema. Eyes: Conjunctivae are normal. Right eye exhibits no discharge. Left eye exhibits no discharge. Neck: Neck supple. Cardiovascular: Normal rate, regular rhythm and normal heart sounds. Pulmonary/Chest: Effort normal and breath sounds normal. No respiratory distress. She has no wheezes. She has no rales. Lymphadenopathy: She has no cervical adenopathy. Neurological: She is alert. Skin: Skin is warm and dry. No rash noted. Nursing note and vitals reviewed. ASSESSMENT/PLAN: 1. Viral URI with cough - ICD9: 465.9, ICD10: J06.9, B97.89 - Discussed viral etiology and rationale for treatment. - Symptomatic treatment with prn analgesia - Supportive care with fluids and rest - safe list for medications during given to patient. - Follow-up with your PCP in 3-5 days if symptoms have not improved or sooner if symptoms worsen - Discussed red flags and need for immediate medical evaluation if any occur. - Discussed supportive care treatment with fluids, rest and analgesia. - Discussed expected course of illness TIA Tipton APRN.CNP, APRN.CNP 06/26/2017 6:05 PM Signed Treatment for Viral Upper Respiratory Tract Infections Your body will kill off the virus by itself. Additionally, you can prime your body's immune system. This may help you get better more quickly. 1. Drink lots of fluids - at least one gallon of non-caffeinated liquids per day 2. Make sure you are eating well 3. Get plenty of rest - at least 8 hours of sleep per night for adults and more for children We do not have any medications that kill off these viruses. Antibiotics are used to treat bacterial infections; however, they are not active against viral infections. There are some things that might help you feel better, though. 1. Vaporizers, humidifiers, hot showers, and hot fluids help open respiratory and sinus passages 2. [place] Nasal [place] may offer relief of nasal and head congestion 3. Zafar's Vapor Rub placed on a hot towel and draped over the head may relieve congestion 4. Tylenol and Advil help control fevers and headaches 5. Salt water gargles help relieve sore throats 6. Chloraceptic spray or throat lozenges may also help relieve sore throat symptoms Safe list of medication during given to patient. Occasionally, viral infections turn into something more serious. You should see your doctor or return to the Urgent Care if: 1. You have fevers for longer than five days 2. You have fevers above 102 degrees 3. You are still sick after 10 days 4. You have shortness of breath or wheezing 5. After several days you are getting worse rather than better Referring Provider: SELF [200] Allergies As of Date: 06/26/2017 (No Known Allergies) Date Reviewed: 06/26/2017 Reviewed by: Suzan (Christiano) GALEN Segura.OPTICAL GLASS INSPECTOR - Fully Assessed Reason for Visit: Nasal Congestion [235] Cmt: with cough and sore throat X 24 hours Primary Visit Diagnosis:Viral URI with cough [J06.9, B97.89] Prescriptions as of 06/26/2017 Sig: PRE-EMELYN MULTIVITAMINS/MINERAL* Take by mouth. NORGESTIMATE 0.25 MG-ETHINYL * Take 1 tablet by mouth once d* PREDNISONE 20 MG TABLET Prednisone 40 mg (2-20mg tabl* BENZONATATE 100 MG CAPSULE Take 1 capsule by mouth three* CYCLOBENZAPRINE 5 MG TABLET Take 5 mg by mouth three time* NAPROSYN ORAL Take by mouth. OMEPRAZOLE 20 MG CAPSULE,EFRAIN* Take 1 capsule by mouth twice* SUCRALFATE 1 GRAM TABLET Take 1 tablet by mouth four t* POLY-VITAMINS CHEWABLE TABLET CHEW AND SWALLOW ONE TABLET O* Medication notes this encounter NORGESTIMATE 0.25 MG-ETHINYL ESTRADIOL 35 MCG TABLET >> Jadyn Nguyen LPN 06/26/2017 5:51 PM >> JADYN NGUYEN LPN ThuJun 26, 2017 5:51 PM Not taking CYCLOBENZAPRINE 5 MG TABLET >> Jadyn Nguyen LPN 06/26/2017 5:51 PM >> JADYN NGUYEN LPN ThuJun 26, 2017 5:51 PM Not taking NAPROSYN ORAL >> Jadyn Nguyen LPN 06/26/2017 5:51 PM >> JADYN NGUYEN LPN ThuJun 26, 2017 5:51 PM Not taking OMEPRAZOLE 20 MG CAPSULE,DELAYED RELEASE >> Jadyn Nguyen LPN 06/26/2017 5:51 PM >> JADYN NGUYEN LPN ThuJun 26, 2017 5:51 PM Not taking SUCRALFATE 1 GRAM TABLET >> Jadyn Nguyen LPN 06/26/2017 5:51 PM >> JADYN NGUYEN LPN ThuJun 26, 2017 5:51 PM Not taking POLY-VITAMINS CHEWABLE TABLET >> Jadyn Nguyen LPN 06/26/2017 5:51 PM >> JADYN NGUYEN LPN ThuJun 26, 2017 5:51 PM Not taking Problem List As Of Date 06/26/2017 Noted Resolved Unspecified site of ankle sprain and strain [S9*INVALID FOR* Ankle pain [M25.579] INVALID FOR* Other instructions from your clinician: Treatment for Viral Upper Respiratory Tract Infections Your body will kill off the virus by itself. Additionally, you can prime your body's immune system. This may help you get better more quickly. 1. Drink lots of fluids - at least one gallon of non-caffeinated liquids per day 2. Make sure you are eating well 3. Get plenty of rest - at least 8 hours of sleep per night for adults and more for children We do not have any medications that kill off these viruses. Antibiotics are used to treat bacterial infections; however, they are not active against viral infections. There are some things that might help you feel better, though. 1. Vaporizers, humidifiers, hot showers, and hot fluids help open respiratory and sinus passages 2. [place] Nasal [place] may offer relief of nasal and head congestion 3. Zafar's Vapor Rub placed on a hot towel and draped over the head may relieve congestion 4. Tylenol and Advil help control fevers and headaches 5. Salt water gargles help relieve sore throats 6. Chloraceptic spray or throat lozenges may also help relieve sore throat symptoms Safe list of medication during given to patient. Occasionally, viral infections turn into something more serious. You should see your doctor or return to the Urgent Care if: 1. You have fevers for longer than five days 2. You have fevers above 102 degrees 3. You are still sick after 10 days 4. You have shortness of breath or wheezing 5. After several days you are getting worse rather than better Encounter Status:Closed by SUZAN SEGURA on 06/26/17 EMERGENCY DEPARTMENT Observed: 06/24/2017 Status: F Source: [place] SUMMARY 11:49 PM [facility] REPOSITORY [facility] Medical Records Department [address] [place] [address] Emergency Department Summary 06/24/17 1759 MR#: [id number] Acct: [id number] Name: BONNIE STALLWORTH Rep #: [id number] : 1995 21 From: Lilly Dunbar DO PCP: Lam Lozano MD Status: DEP ER - ER Visit Summary Date of Service: 06/24/17 Chief Complaint: [Vaginal bleeding] History of Present Illness: The patient is a 21 F [resents to the emergency department with spotting 1 week. Patient states that over a week ago she took a home test that was positive. Patient is . Last menstrual period ended May 14. Patient denies any abdominal pain or cramping. Patient denies urinary symptoms. She has no history of STDs.] Physical Examination: [HEENT-PERRLA, EOMI. Cranial nerves II through XII grossly intact. TMs clear. Mucous membranes moist. No adenopathy. Cardiovascular-regular rate and rhythm without murmur or ectopy Lungs-clear to auscultation, chest wall stable without crepitus or subcu emphysema Abdomen-normoactive bowel sounds, soft, nontender, no rebound or rigidity, no peritoneal signs. Extremities-intact 4, normal range of motion, normal pulses, atraumatic] Test Results: [CBC with differential showed a white count of 5.9, hemoglobin 12.6, hematocrit 36, platelets 263. Urinalysis was normal. Type and Rh was O+. Quantitative hCG was 25,830. Pelvic ultrasound obtained showed a single live intrauterine measuring 6 weeks 3 days with a minimal subchorionic hemorrhage and a heart rate of 93 bpm.] Emergency Department Course and Treatment: [None Treatment Plan: [Patient to keep follow-up appointment with her FOOD SANITARIAN on July 06.] Disposition: [Discharged to home in stable condition. Patient to return if pelvic pain, severe bleeding, or condition should worsen in any way.] Impression: [First trimester vaginal bleeding Threatened ] This note was generated with Joroto dictation software. It may contain incorrect words, spelling, and punctuation that were not noted in review of the chart prior to signing ED Disposition - Plan for ED Patient: Chief Complaint: Referrals: Lam Lozano MD [Primary Care Provider] - What to do if you have Problems For any increased pain, shortness of breath, bleeding, nausea or vomiting, chest pain, or any unexpected problems, contact your Primary Care Provider. Call [facility] ([phone]) or report to the closest Emergency Room. Call 911 if necessary. 06/24/17 7044 <Electronically signed by Lilly Dunbar DO> Date Lilly Dunbar DO Cosigner Signature (If Indicated): Date CC: Lam oLzano MD DISCHARGE INSTRUCTION Observed: 06/24/2017 Status: F Source: [place] 8:55 PM [facility] REPOSITORY [facility] Medical Records Department [address] [place] [address] Discharge Instruction 06/24/172052 MR#: [id number] Acct: [id number] Name: BONNIE STALLWORTH Rep #: [id number] : 1995 From: Lilly Dunbar DO PCP: Lam Lozano MD Status: REG ER ED Disposition - Plan for ED Patient: Chief Complaint: Instructions: ED Miscarriage Poss Referrals: Lam Lozano MD [Primary Care Provider] - America Simons MD [STAFF PHYSICIAN] - Keep Patricio appointment What to do if you have Problems For any increased pain, shortness of breath, bleeding, nausea or vomiting, chest pain, or any unexpected problems, contact your Primary Care Provider. Call [facility] ([phone]) or report to the closest Emergency Room. Call 911 if necessary. 06/24/172054 <Electronically signed by Lilly Dunbar DO> Date Lilly Dunbar DO Cosigner Signature (If Indicated): Date CC: Lam Lozano MD TRANSVAGINAL W/PREG US Observed: 06/24/2017 Status: F Source: [place] 7:03 PM [facility] REPOSITORY [facility] Imaging Services [address] [place] [address] Transvaginal w/Preg US MR#: [id number] Acct: [id number] Name: BONNIE STALLWORTH Rep #: [id number] : 1995 F 21 From: Jadyn Ortega MD PCP: Lam Lozano MD Status: REG ER Study: Transvaginal w/Preg US Date of Exam: 06/24/17 Exam# [id number] Ordering Dr: Lilly Dunbar DO STUDY: FIRST TRIMESTER OBSTETRICAL ULTRASOUND REASON FOR EXAM: Female, 21 years old. Vaginal spotting. LMP: 2-18 TECHNIQUE: Transvaginal real-time exam with ortega scale image documentation and limited Doppler color flow. PRIOR ULTRASOUND: None. FINDINGS: There is visualization of a single gestational sac in a normal intrauterine position. The mean sac diameter (MSD) measures 1.5 cm, indicating an estimated gestational age (EGA) of 6 weeks, 3 days. The gestational sac shape is within normal limits. There is a visualized yolk sac. The yolk sac measures 3.4 mm. The placenta is non-visualized. There is visualization of a live embryo. The crown-rump length (CRL) measures 0.54 cm, indicating an estimated gestational age (EGA) of 6 weeks, 3 days. There is demonstrated cardiac activity with a heart rate of 93 bpm. The estimated gestation age (EGA) by LMP is 6 weeks, 5 days. The estimated date of delivery (MAYKEL) by LMP is 02/12/2018 The estimated gestation age (EGA) by US is 6 weeks, 3 days. The estimated date of delivery (MAYKEL) by US is 02/14/2018. The uterus measures 7.3 x 5.2 x 4.5 cm. There is no demonstrated uterine fibroid. The cervix is closed. Minimal subchorionic hemorrhage. The right ovary measures 3.4 x 2.6 x 1.9 cm. There is a 2.2 x 1.9 x 1.6 hemorrhagic cyst of the right ovary. There is no visualized right adnexal mass or complex lesion. The left ovary measures 2.5 x 1.3 x 1.0 cm. There is no left ovarian cyst. There is no visualized left adnexal mass or complex lesion. There is minimal fluid in the cul de sac. US/Transvaginal w/Preg US IMPRESSION: Single living intrauterine fetus of 6 weeks and 3 days with an MAYKEL of 02/14/2018. Minimal subchorionic hemorrhage. 2.2 x 1.9 x 1.6 cm hemorrhagic corpus luteum cyst of the right ovary. Normal left ovary. No adnexal masses. Minimal free fluid. Electronically Signed: Jadyn Ortega MD at 20:28 EDT , Service support , CC: Lam Lozano MD; Lilly Dunbar DO Registered Nurse Post Partum: Signed URINALYSIS, COMPLETE Collected: 06/24/2017 Status: F Source: [place] 6:10 PM [facility] REPOSITORY Order Comment: How was Urine Obtained? GENERAL EDUCATION INSTRUCTOR TO SPECIFY TYPE CODE TESTS RESULT OUT OF RANGE REFERENCE UNITS LAB L400.3000 Yellow COLOR Normal Yellow LAB L400.3050 Clear Normal CLARITY Clear LAB L400.3200 Normal mg/dl Normal GLUCOSE, UR Normal LAB L400.3300 Negative mg/dL Normal BILIRUBIN URINE Negative LAB L400.3400 Negative mg/dl High 15 KETONE UR LAB L400.3465 1.002-1.030 Normal SP.GR. DIPSTX 1.015 LAB L400.3550 5.0 - 8.0 pH UR Normal 6.5 LAB L400.3600 Negative mg/dl PROT Normal DIPSTX Negative LAB L400.3700 Normal mg/dl Normal UROBILI Normal LAB L400.3750 Negative Normal NITRITE UR Negative LAB L400.3780 Negative /ul High 25 OCCULT BLOOD-UR LAB L400.3800 Negative /ul LEUK Normal ESTERASE Negative LAB L400.4050 0-5 /hpf WBC 0 Normal SEEN LAB L400.4100 0-5 /hpf 0 Normal RBC-UA SEEN LAB L400.4150 5-10 /hpf SQUAM Normal EPI 0-5 SEEN LAB L400.4300 None Seen /hpf Normal BACTERIA RARE LAB L400.4350 <or=2+ /hpf 1+ Normal MUCUS, URINE Performed By: #### L400.0001 #### [facility] [address] [place], [place], [id number] CBC W/DIFF, AUTOMATED Collected: 06/24/2017 Status: F Source: [place] 5:43 PM [facility] REPOSIT[facility] TYPE CODE TESTS RESULT OUT OF RANGE REFERENCE UNITS LAB L100.1000 4.4-11.0 K/mm3 Normal WBC 5.9 LAB L100.1200 4.2-5.4 M/mm3 Normal RBC 4.35 LAB L100.1300 12.0-15.0 g/dl Normal HGB 12.6 LAB L100.1400 37-47 % Low HCT 36.4 LAB L100.1500 81-99 fL Normal MCV 83.7 LAB L100.1600 27.0-32.0 pg Normal MCH 29.0 LAB L100.1700 32-36 g/gl Normal MCHC 34.6 LAB L100.1810 11.6-14.6 % Normal RDW CV 12.1 LAB L100.1820 35.1-43.9 fl Normal RDW SD 37.1 LAB L100.1900 150-450 K/mm3 Normal PLT 263 LAB L100.2000 6.2-12.0 fl Normal MPV 9.3 LAB L100.2100 47-70 % Normal NEUT% 48.6 LAB L100.2200 19-41 % High LY% 43.4 LAB L100.2300 0-10 % Normal MONO% 5.6 LAB L100.2400 0-5 % Normal EO% 1.9 LAB L100.2500 0-1 % Normal BASO% 0.3 LAB L100.2550 0.0-0.9 % Normal IM GRAN % 0.200 Result Comment: IG% - Immature Granulocytes (promyelocytes, myelocytes and metamyelocytes) > 1% indicates that a LEFT SHIFT is Present. LAB L100.2620 2.0-7.7 X10 3/uL Normal Absolute Neut 2.8 LAB L100.2720 0.83-4.51 X10 3/ul Normal Absolute Lymph 2.54 Performed By: #### L100.0100 #### [facility] [address] [place], [place], [address] HCG TITER QUANT., Collected: 06/24/2017 Status: F Source: [place] SERUM 5:43 PM [facility] REPOSITORY TYPE CODE TESTS RESULT OUT OF RANGE REFERENCE UNITS LAB L700.8000 <9 non-preg mIU/mL High HCG 63032 QUANT. Performed By: #### L700.8000 #### [facility] [address] [place], [address] ABO RH BLOOD TYPE, Collected: 06/24/2017 Status: F Source: [place] PATIENT 5:43 PM [facility] REPOSITORY TYPE CODE TESTS RESULT OUT OF RANGE REFERENCE UNITS LAB B10.0800 O Normal BLOOD POSITIVE TYPE GEL Performed By: #### B10.0010 #### [facility] [address] [place], [address] CNCO Observed: 06/18/2017 Status: COMPLETED Source: [place] 12:00 AM [facility] REPOSITORY Letter Text [facility] [address] [place], [place] [address] June 18, 2017 RE: Bonnie Stallworth [address] [facility] [address] 1995 Dear Parent/Guardian of Bonnie, We have tried to contact you in regards to your need for a routine physical. Our efforts to reach you have been unsuccessful. Please call [phone] to coordinate your child's plan of care. Thank you and we look forward to talking with you. Sincerely, [facility] ALLERGIES ALLERGIES DATE TYPE / CODE NAME / CODE REACTION SEVERITY SOURCE 04/28/2018 Drug No Known Unknown [facility] Allergy/416 Allergies/S77469 Hospital [id number](SNOM 0388(RXNORM) Repository ED CT) Drug NO KNOWN [facility] Class/59162 ALLERGIES Main [place] 1003(SNOMED Repository CT) ENCOUNTERS ENCOUNTERS ADMIT/DISCHARGE ACCOUNT ADMITTING ENCOUNTER LOCATION SOURCE NUMBER CLASS 04/28/2018/04/28/19 [id number] Emergency [address] ing:ED Repository 04/02/2018/04/05/20 [id number] Ambulatory [address] Repository 02/19/2018/02/22/20 [id number] Festus Augustdejuan Inpatient [place] 18 Encounter [facility] ing:WPRoom: Repository [id number]: 1 02/16/2018/02/18/20 [id number] Ambulatory [place] 18 [facility] [place] Repository 02/09/2018/02/11/20 [id number] Ambulatory [place] 18 [facility] [place] Repository 02/06/2018/02/08/20 [id number] Ambulatory [place] 18 [facility] ing:WPOUTRoom Repository : [id number] 02/05/2018/02/09/20 [id number] Ambulatory [facility] [place] Repository 01/27/2018/01/29/20 [id number] Ambulatory [place] [facility] [place] Repository 01/27/2018/02/02/20 [id number] Ambulatory [place] [facility] [place] Repository 01/19/2018/01/21/20 [id number] Ambulatory [place] [facility] [place] Repository 01/05/2018/01/08/20 [id number] Ambulatory [place] 18 [facility] [place] Repository 12/23/2017/12/25/19 [id number] Ambulatory [place] [facility] [place] Repository 12/22/2017/12/24/19 [id number] Ambulatory [place] [facility] [place] Repository 12/22/2017/12/24/19 [id number] Ambulatory [place] [place] Repository 12/08/2017/12/11/19 [id number] Ambulatory [place] 18 [facility] [place] Repository 11/26/2017/11/27/19 [id number] Ambulatory [place] 18 [facility] [place] Repository 11/25/2017/11/26/19 [id number] Ambulatory [place] [facility] [place] Repository 11/25/2017/11/27/19 [id number] Ambulatory [place] [facility] [place] Repository 10/27/2017/10/29/19 [id number] Ambulatory [place] [facility] [place] Repository 09/29/2017/10/01/19 [id number] Ambulatory [place] [facility] [place] Repository 09/29/2017/10/01/19 [id number] Ambulatory [place] [facility] [place] Repository 09/08/2017/09/09/19 [id number] Ambulatory [place] 18 [facility] [place] Repository 09/01/2017/09/03/19 [id number] Ambulatory [place] 18 [facility] [place] Repository 08/04/2017/08/05/19 [id number] Ambulatory [place] 18 [facility] [place] Repository 08/04/2017/08/07/19 [id number] Ambulatory [place] 18 [facility] [place] Repository 08/04/2017/08/08/19 [id number] Ambulatory [place] 18 [facility] [place] Repository 07/22/2017/07/23/19 [id number] Ambulatory [place] 18 [facility] [place] Repository 07/22/2017/10/06/19 [id number] Ambulatory [place] 18 [facility] [place] Repository 07/06/2017/07/09/19 [id number] Ambulatory [address] [place] Repository 06/28/2017/06/30/19 [id number] Ambulatory [address] [place] Repository 06/26/2017/06/27/19 [id number] Ambulatory [address] [place] Repository 06/24/2017/06/25/19 [id number] Emergency [place] [address] [place] [address] ing:ED Repository PAYERS PAYERS ENCOUNTER GUARANTOR PAYER SUBSCRIBER SOURCE 04/28/2018 BONNIE Saab Primary Insurance:[facility] BONNIE A [place] [id number] [facility] SAY[place]OLT Number: [id number], [place] [id number] Repository [address]Hev: (330) Date:2113-28-75JS [phone] () [address] [place] [address] [id number]: 04/28/2018 Secondary NOT GIVENUNK [place] Insurance:SELF PAY [facility] Number: Effective Repository Date:2018-04-28 02/19/2018 BONNIE Saab Primary Insurance:[facility] BONNIE A [place] [id number] [facility] Number: [id number], [place] [id number] Repository 85[address]Yls: (330) Date:1730-97-43ZO [phone] () [address] [place] [address] [id number]: 02/19/2018 Secondary NOT GIVENUNK [place] Insurance:SELF PAY [facility] Number: Effective Repository Date:2018-02-19 02/06/2018 BONNIE Saab Primary Insurance:[facility] BONNIE A [place] [id number] [facility] Number: [id number], [place] [id number] Repository [address]Bjo: (330) Date:5663-02-26YY [phone] () [address] [place] [address] [id number]: 02/06/2018 Secondary NOT GIVENUNK Raji Insurance:SELF PAY [facility] Number: Effective Repository Date:2018-02-06 06/24/2017 BONNIE Katiana Primary BONNIE Alegria [id number] Insurance:MEDICAIDPol [facility] Number: [id number], [place] [id number] Repository [address]Cco: ([phone]) Date:2017-06-24 [phone] () 06/24/2017 Secondary NOT GIVENUNK Raji Insurance:SELF PAY [facility] Number: Effective Repository Date:2017-06-24
== END 2018-04-28 14:09 | disposition home or self-care (01) ==
LOC: ED 13:12
PROVIDERS: Emergency Provider Emergency Medicine; Family Provider Pediatrics; PCP Pediatrics
DX: S93.402A Sprain of unspecified ligament of left ankle, initial encounter (principal); S93.602A Unspecified sprain of left foot, initial encounter; W10.9XXA Fall (on) (from) unspecified stairs and steps, initial encounter; Y93.9 Activity, unspecified; Y92.9 Unspecified place or not applicable
CPT/HCPCS: 73610; 73630; 99284

== ENCOUNTER 2018-12-05 20:54 | Emergency (ER) | payer MEDICAID, SELFPAY ==
[2018-12-05 20:55] VITALS: BP 112/57; PULSE 78; RESP 15; TEMP 36.4; O2SAT 95; BMI 19.8
[2018-12-05 21:22] LABS: Bacteria 0 SEEN /hpf (None Seen); Red Blood Cells-Urine 0 SEEN /hpf (0-5); White Blood Cells 0 SEEN /hpf (0-5)
[2018-12-05 21:23] LABS: Color, Urine Yellow (Yellow); Glucose, Dipstick Normal (Normal); Ketone-Dipstick 5 mg/dl (Negative); Leukocyte Esterase-Dipstick Negative /ul (Negative); Nitrite-Dipstick Negative (Negative); Occult Blood-Urine Negative /ul (Negative); Protein-Dipstick 15 mg/dl (Negative); Urine Bilirubin Dipstick Negative (Negative); Urine Clarity Clear (Clear); Urine Urobilinogen 4 mg/dl (Normal)
[2018-12-05 21:30] LABS: Mucous, Urine RARE /hpf (<or=2+); Squamous Epithelial Cells - UA 0-5 SEEN /hpf (5-10)
[2018-12-05 21:31] LABS: Internal QC Validated? YES +Cl - CLEAR BKGD; Pregnancy, Urine Negative Negative
--- NOTE | 2018-12-05 22:07 | ED.DCSUM_ITS ---
History of Present Illness Chief Complaint: Complaint Detail of Chief Complaint: Mild dysuria left flank pain Informant: Patient Onset: Today Current Severity: Mild Maximum Severity: Mild Narrative: Patient presents with mild left flank pain today. She reports mild dysuria and thought she might of seeing some blood in her urine. She denies injury. No history of UTIs. No vaginal discharge. No fever or chills. Past Medical History - Allergies and Home Meds Allergies/Adverse Reactions: Allergies No Known Allergies Allergy (Verified 12/05/18 20:58) Primary Care Physician: Lam Lozano MD [Primary Care Provider] - Prior records reviewed: Yes Past Medical History: - - Reviewed Lives: With Family Smoking Status: Never smoker Review of Systems General: Denies: Chills, Fever Eyes: Denies: Visual changes - bilaterally ENT: Denies: Bilateral ear pain Cardiovascular: Denies: Chest pain Respiratory: Denies: Dyspnea Gastrointestinal: Reports: Abdominal pain - Left flank pain. Denies: Nausea, Vomiting, Diarrhea, Constipation Genitourinary: Reports: Dysuria, Hematuria. Denies: Frequency Musculoskeletal: Reports: Back pain - Left flank Skin: Denies: Rash Neurological: Denies: Headache Endocrine: Denies: Polyuria, Polydipsia Hematologic: Denies: Easy bruising Allergy: Denies: Uticaria Physical Exam Vital Signs/Narrative: Vital Signs Temp Pulse Resp BP Pulse Ox 12/05/18 20:55 97.6 F L 78 15 112/57 L 95 Inital Vital Signs reviewed: Yes General: Well nourished, Well developed Head: Normocephalic ENT: Moist mucous membranes Neck: Supple Cardiovascular: Regular rate, Regular rhythm Respiratory: No distress, CTA bilaterally Abdomen: Soft, Nontender Back: CVA tenderness - Left Extremities: Nontender Skin: Normal color Neurological: Alert, Oriented x3 Psychological: Normal affect Diagnostic/Tx/Re-eval Laboratory Results 12/05/18 12/05/18 21:05 21:05 Urine Color Yellow Urine Clarity Clear Urine pH 6.0 Ur Specific [place] 1.020 Urine Protein 15 H Urine Glucose (UA) Normal Urine Ketones 5 H Urine Occult Blood Negative Urine Nitrite Negative Urine Bilirubin Negative Urine Urobilinogen 4 H Ur Leukocyte Esterase Negative Urine RBC 0 SEEN Urine WBC 0 SEEN Ur Squamous Epith Cells 0-5 SEEN Urine Bacteria 0 SEEN Urine Mucus RARE Urine Test Negative - Medical Decision Making Test results discussed with patient and mother at bedside. At this time I see no evidence of acute infection. I advised if she still having some dysuria and a couple days ago needs to be rechecked. We discussed the possibility of a possible small kidney stone. At this time treatment would still be pain control and increase fluids. We will avoid laboratory evaluation and CT imaging at this time. If her symptoms worsen and she returns we may consider that. Patient is comfortable with this plan. ED Disposition - Plan for ED Patient: Disposition: Home or Assisted Living Diagnosis: Flank pain Instructions: FLANK PAIN, Uncertain Cause Prescriptions: Naproxen [Naprosyn] 500 mg PO BID PRN PRN #20 tablet PRN Reason: Pain Referrals: Lam Lozano MD [Primary Care Provider] -
[2018-12-05] MEDS: Naproxen 500 MG Tablet PO (22:19)
[2018-12-05 22:20] VITALS: BP 121/74; PULSE 69; RESP 17; O2SAT 98
== END 2018-12-05 22:20 | disposition home or self-care (01) ==
PROVIDERS: Emergency Provider Emergency Medicine; Family Provider Pediatrics; PCP Pediatrics
DX: R10.9 Unspecified abdominal pain (principal); R30.0 Dysuria; R31.9 Hematuria, unspecified
CPT/HCPCS: 81001; 81025; 99283

== ENCOUNTER 2020-04-04 07:01 | Inpatient (IN) | payer MEDICAID, SELFPAY ==
[2020-04-04] VITALS (40 sets, daily range): BP systolic 104–176; BP diastolic 55–126; PULSE 71–151; RESP 16; TEMP 36.6–37.1; O2SAT 91–100; BMI 24.9
[2020-04-04] MEDS: Lactated Ringers 1,000 ML 50 ML IV (07:30)
[2020-04-04] MEDS: Lactated Ringers 500 ML 999 ML IV (07:40)
[2020-04-04 07:51] LABS: Absolute Lymphocyte Count 2.37 X10^3/uL (0.83-4.51); Absolute Neutrophil Count 8.1 X10^3/uL (2.0-7.7); Basophil# 0.04 X10^3/uL; Basophil% 0.4 % (0-1); Eosinophil# 0.08 X10^3/uL; Eosinophils% 0.7 % (0-5); Hematocrit 32.8 % (37-47); Hemoglobin 11.4 g/dL (12.0-15.0); Lymphocyte # 2.37 X10^3/ul (4.0); Lymphocyte % 20.8 % (19-41); Mean Corp Hgb Conc 34.8 g/dL (32-36); Mean Corpuscular Hgb 30.6 pg (27.0-32.0); Mean Corpuscular Volume 87.9 fL (81-99); Mean Platelet Vol. 9.3 fl (6.2-12.0); Monocyte# 0.68 X10^3/uL; NRBC Flagged by Analyzer 0 % (0-5); Neutrophil # 8.13 X10^3/uL (2.7-7.7); Neutrophil % 71.1 % (47-70); Platelet Count 284 K/mm3 (150-450); RBC Distribution Width CV 12.7 % (11.6-14.6); RBC Distribution Width SD 39.3 fl (35.1-43.9); Red Blood Count 3.73 M/mm3 (4.2-5.4); White Blood Count 11.4 K/mm3 (4.4-11.0)
--- NOTE | 2020-04-04 07:57 | PCM.HP.OB ---
- Problem List (1) 40 weeks gestation of Status: Acute (2) Multiparity Status: Acute (3) Genital herpes Status: Acute History Date of Admission: 04/04/20 Final MAYKEL: 04/04/20 Final MAYKEL Source: US <20 weeks Gestational age: 40 Weeks and 0 Days History of this : This is a 24 year-old who presents at 40 week gestation SROM and with contractions. She reports around 10 pm last night she had a gush of clear fluid. She has been yared throughout the night. Medical History: Medical History (Last Updated 04/04/20 @ 08:[address] Herlinda Snow, DO) History of herpes genitalis Z86.19 Allergies No Known Allergies Allergy (Verified 12/05/18 20:58) Home Medications: Home Medications Norgestimate-Ethinyl Estradiol [[place]-Linyah 28 Tablet] 1 tab PO DAILY 04/28/18 Naproxen [Naprosyn] 500 mg PO BID PRN PRN #20 tab 12/05/18 Smoking Status: Never smoker Number of Fetus(es): 1 NST - FHR Rate Baby A FHR Category:: Category I Uterine Activity:: Ctx q 4 min History Past Pregnancies: Past Pregnancies Delivery Date Name GA/ Weeks Outcome Route Wt Sex Labor Length Anesthesia Delivery Location Provider FOB Labs: See [facility] record Review of Systems Gynecological: Reports: - - +Ctx and LOF Physical Exam Vitals: Vital Signs Pulse BP Pulse Ox 95 115/66 100 04/04/20 07:23 04/04/20 07:23 04/04/20 07:23 General: Alert, No apparent distress HEENT: Atraumatic Abdomen: Soft, Non Tender, Gravid Extremities:: No edema Neurological: Neuro grossly intact SHIPPING AND RECEIVING SUPERVISOR: Normal external genitalia - No herpes lesions Estimated gestational size: Appropriate for gestational size Presentation: Cephalic Cervix Dilation (cm): 3 Station: -2 Effacement (%): 70 Assessment/Plan All Active Problems 40 weeks gestation of (Acute) Multiparity (Acute) Genital herpes (Acute) This is a 24 year-old at 40w0d who presents with SROM and ctx's. - Routine intrapartum care - Epidural for pain control - PCN for GBS positive - EFW expected to be < 4500 g and pelvis adequate. Anticipate
[2020-04-04] MEDS: fentaNYL-bupivacaine (epidural) 100 ML BAG EPIDURAL (09:02)
[2020-04-04] MEDS: Oxytocin 30 units/NS 500 ml 30 UNITS/500 ML IV.SOLN 334 UNITS IV (09:49)
--- NOTE | 2020-04-04 10:01 | OP.PCM_ITS ---
Problem List (1) 40 weeks gestation of Status: Acute (2) Multiparity Status: Acute (3) Genital herpes Status: Acute Report of Operation Date of Procedure: 04/04/20 Pre-Operative Diagnosis: 40 week gestation, SROM, labor, multiparous patient Post-Operative Diagnosis: As above Surgery/Procedure Performed:: Type of Anesthesia:: Epidural Special Medications: None Specimen's removed: Placenta Drains: None Estimated Blood Loss (mL): 100 Description of Procedure: Patient was complete and pushing. Head delivered in occiput anterior position followed by anterior shoulder, posterior shoulder, body of without any force or delay. A viable male infant was delivered atraumatically placed on maternal abdomen. The cord was clamped and cut after 60 sec delay. Cord blood was obtained. The placenta delivered spontaneously and was noted to be normal- appearing and intact with a three-vessel cord. The fundus was firm and bleeding hemostatic. No lacerations noted. Vaginal sweep was performed. Sponge count correct. Grafts/Implants Used: None - Complications None - Admit VTE Documentation VTE Present on Admission: No VTE Mechan Device Prophylaxis: None VTE Pharm Prophylaxis ordered?: No Vaginal Delivery Maternal Presentation: Active Labor, Spontaneous Rupture of Membranes Amniotic Membrane Rupture Type: Spontaneous at home Amniotic Fluid Description: Clear Surgery/ Procedure Performed: Spontaneous Vaginal Delivery Type of Anesthesia: Epidural Presentation: Vertex Placental Delivery Description: Spontaneous Cord Entanglement: None Infant A gender: Male (1 minute): 8 (5 minute): 9 Episiotomy Description: None Laceration: None Medications given after delivery: IV Pitocin
[2020-04-04] MEDS: Ibuprofen 600 MG Tablet PO (16:39)
[2020-04-05 00:14] VITALS: BP 113/72; PULSE 83; RESP 16; TEMP 36.5
[2020-04-05] MEDS: Acetaminophen 500 MG Tablet 1000 MG PO ×3 (00:24→22:26)
[2020-04-05] MEDS: Ibuprofen 600 MG Tablet PO ×3 (01:38→19:45)
[2020-04-05 04:27] VITALS: BP 112/56; PULSE 68; RESP 16; TEMP 36.7
[2020-04-05 07:39] VITALS: BP 104/55; PULSE 70; RESP 16; TEMP 37.1; O2SAT 98
--- NOTE | 2020-04-05 13:32 | PCM.PN.OB ---
Patient Problems: Active and Suspected Problems (Last Updated 04/04/20 @ 08:[address] Herlinda Snow, DO) 40 weeks gestation of (Acute) Multiparity (Acute) Genital herpes (Acute) Subjective: No complaints - Physical Exam Vitals/I&O's: Vital Signs Temp Pulse Resp BP Pulse Ox 98.7 F 70 16 104/55 L 98 04/05/20 07:39 04/05/20 07:39 04/05/20 07:39 04/05/20 07:39 04/05/20 07:39 Oxygen Delivery Method Room Air Weight: 145 lb 3.2 oz Body Mass Index (BMI) 24.9 Intake and Output for Last 24 Hours 04/03/20 04/04/20 04/05/20 23:59 23:59 23:59 Intake Total 1275.92 / 1275.92 Output Total 1000 / 1000 Balance 275.92 / 275.92 General: Alert, Oriented x3 Abdomen: Non-Distended - ff mid & below umb Extremities: No Calf Tenderness Microbiology Past 72 Hours 04/04/20 08:20 Mucosa - Nose SARS-CoV-2 Antigen (Rapid) - Final Current Medications Acetaminophen (Acetaminophen 500 Mg Tablet) 1,000 mg PO Q8H PRN PRN PRN Reason: Pain Score 1-10 Last Admin: 04/05/20 00:24 Dose: 1,000 mg Documented by: Bisacodyl (Bisacodyl 10 Mg Suppository) 10 mg RECTAL UD PRN PRN Reason: If no BM Dibucaine (Dibucaine 30 Gm Tube) 1 applic TOPICAL TID PRN PRN; Protocol PRN Reason: Discomfort Hydrocortisone (Hydrocortisone 2.5% Crm) 1 applic TOPICAL TID PRN PRN; Protocol PRN Reason: Discomfort Ibuprofen (Ibuprofen 600 Mg Tablet) 600 mg PO Q6H PRN PRN PRN Reason: Pain Score 1-10 Last Admin: 04/05/20 07:44 Dose: 600 mg Documented by: Methylergonovine Maleate (Methylergonovine 0.2 Mg/Ml Ampul) 0.2 mg IM X1 PRN PRN Reason: Excess bleeding/uterine atony Ondansetron HCl (Ondansetron 4 Mg/2 Ml Vial) 4 mg IV Q4H PRN PRN PRN Reason: Nausea Senna/Docusate Sodium (Senna/Docusate Sodium 1 Tablet) 1 - 2 tablet PO DAILY PRN PRN PRN Reason: Constipation Simethicone (Simethicone 80 Mg Tablet) 80 mg PO PCHS PRN PRN Reason: Indigestion/Stomach pain Sodium Chloride (0.9% Saline Lock 10 Ml Syringe) 5 - 15 ml IV UD PRN PRN Reason: SALINE FLUSH Medical Necessity - Tobacco Use Smoking Status: Never smoker Assessment/Plan All Active Problems (Last Updated 04/04/20 @ 08:[address] Herlinda Snow, DO) 40 weeks gestation of (Acute) Multiparity (Acute) Genital herpes (Acute) PPD#1 Routine care D/c home tomorrow
--- NOTE | 2020-04-05 13:33 | DCINST_ITS ---
Discharge Diet: No Restrictions Discharge Activity: May Drive, May Shower May resume sexual activity in: 6 weeks Weight Bearing Status: Weight bearing as tolerated Additional Instructions: If you experience any of the following, contact your healthcare provider. * Bleeding that soaks a pad every hour for 2 hours * Fever 100.4 or higher * Unrelieved incision or abdominal pain * Swelling, redness, discharge or bleeding from your incision or episiotomy site * Your incision begins to separate * Problems urinating (including inability to urinate or burning while urinating). * Visual changes * Severe headache * Flu-like symptoms * Pain or redness in one of both of your breasts * Pain, warmth, tenderness or swelling in your legs, especially the calf area * Frequent nausea and vomiting * Symptoms of depression or anxiety If you experience any of the following, call 911 or go to the nearest Emergency Room. * Chest pain * Problems breathing * Seizure activity * Partial or complete paralysis of a body part, slurred speech, weakness or drooping of the face, or a sudden inability to walk or hold your balance Allergies/Adverse Reactions: Allergies No Known Allergies Allergy (Verified 04/04/20 13:14) Medications to take at Discharge Acetaminophen [Tylenol] 1,000 mg PO Q8H PRN PRN tablet 04/05/20 Ibuprofen [Motrin] 600 mg PO Q6H PRN PRN tablet 04/05/20 Primary Care Physician: Lam Lozano MD [Primary Care Provider] - Test Results: Test results from this visit will be discussed in further detail at your follow- up appointment, if applicable.
--- NOTE | 2020-04-05 13:33 | PCM.DCVAG ---
Discharge Diet: No Restrictions Discharge Activity: May Drive, May Shower May resume sexual activity in: 6 weeks Weight Bearing Status: Weight bearing as tolerated Additional Instructions: If you experience any of the following, contact your healthcare provider. Bleeding that soaks a pad every hour for 2 hours Fever 100.4 or higher Unrelieved incision or abdominal pain Swelling, redness, discharge or bleeding from your incision or episiotomy site Your incision begins to separate Problems urinating (including inability to urinate or burning while urinating). Visual changes Severe headache Flu-like symptoms Pain or redness in one of both of your breasts Pain, warmth, tenderness or swelling in your legs, especially the calf area Frequent nausea and vomiting Symptoms of depression or anxiety If you experience any of the following, call 911 or go to the nearest Emergency Room. Chest pain Problems breathing Seizure activity Partial or complete paralysis of a body part, slurred speech, weakness or drooping of the face, or a sudden inability to walk or hold your balance Allergies/Adverse Reactions: Allergies No Known Allergies Allergy (Verified 04/04/20 13:14) Medications to take at Discharge Acetaminophen [Tylenol] 1,000 mg PO Q8H PRN PRN tablet 04/05/20 Ibuprofen [Motrin] 600 mg PO Q6H PRN PRN tablet 04/05/20 Primary Care Physician: Lam Lozano MD [Primary Care Provider] - Test Results: Test results from this visit will be discussed in further detail at your follow-up appointment, if applicable.
[2020-04-05 14:00] VITALS: BP 113/58; PULSE 80; RESP 18; TEMP 36.8; O2SAT 98
[2020-04-05 19:40] VITALS: BP 114/82; PULSE 76; RESP 16; TEMP 36.7
[2020-04-05] MEDS: Senna/Docusate Sodium 1 Tablet PO (22:27)
[2020-04-06 01:56] VITALS: BP 116/56; PULSE 87; RESP 14; TEMP 36.9
[2020-04-06 09:05] VITALS: BP 114/61; PULSE 78; RESP 18; TEMP 36.8; O2SAT 98
[2020-04-06] MEDS: Ibuprofen 600 MG Tablet PO (09:42)
--- NOTE | 2020-04-06 11:07 | PCM.PN.OB ---
Patient Problems: Active and Suspected Problems (Last Updated 04/04/20 @ 08:[address] Herlinda Snow, DO) 40 weeks gestation of (Acute) Multiparity (Acute) Genital herpes (Acute) Subjective: Doing well per patient and nursing staff. Ambulating and taking PO without difficulty. Voiding and passing flatus. Pain controlled. Lochia normal. Denies any headache, visual changes, chest pain, shortness of breath, increased vaginal bleeding, or leg pain. Bottle feeding. Discharge home today. - Physical Exam Vitals/I&O's: Vital Signs Temp Pulse Resp BP Pulse Ox 98.3 F 78 18 114/61 98 04/06/20 09:05 04/06/20 09:05 04/06/20 09:05 04/06/20 09:05 04/06/20 09:05 Oxygen Delivery Method Room Air Weight: 145 lb 3.2 oz Body Mass Index (BMI) 24.9 Intake and Output for Last 24 Hours 04/04/20 04/05/20 04/06/20 23:59 23:59 23:59 Intake Total 1275.92 / 1275.92 Output Total 1000 / 1000 Balance 275.92 / 275.92 General: Alert, Oriented x3, Cooperative HEENT: Atraumatic, Normocephalic Neck: Trachea Midline Lungs: Clear to auscultation, Normal air movement, No rhonchi, No wheeze Cardiovascular: Regular rate, Regular Rhythm, No murmurs Abdomen: Bowel Sounds Present, Soft Extremities: No edema - cj's negative Psych/Mental Status: Normal Affect, Appropriate Microbiology Past 72 Hours 04/04/20 08:20 Mucosa - Nose SARS-CoV-2 Antigen (Rapid) - Final Current Medications Acetaminophen (Acetaminophen 500 Mg Tablet) 1,000 mg PO Q8H PRN PRN PRN Reason: Pain Score 1-10 Last Admin: 04/05/20 22:26 Dose: 1,000 mg Documented by: Bisacodyl (Bisacodyl 10 Mg Suppository) 10 mg RECTAL UD PRN PRN Reason: If no BM Dibucaine (Dibucaine 30 Gm Tube) 1 applic TOPICAL TID PRN PRN; Protocol PRN Reason: Discomfort Hydrocortisone (Hydrocortisone 2.5% Crm) 1 applic TOPICAL TID PRN PRN; Protocol PRN Reason: Discomfort Ibuprofen (Ibuprofen 600 Mg Tablet) 600 mg PO Q6H PRN PRN PRN Reason: Pain Score 1-10 Last Admin: 04/06/20 09:42 Dose: 600 mg Documented by: Methylergonovine Maleate (Methylergonovine 0.2 Mg/Ml Ampul) 0.2 mg IM X1 PRN PRN Reason: Excess bleeding/uterine atony Ondansetron HCl (Ondansetron 4 Mg/2 Ml Vial) 4 mg IV Q4H PRN PRN PRN Reason: Nausea Senna/Docusate Sodium (Senna/Docusate Sodium 1 Tablet) 1 - 2 tablet PO DAILY PRN PRN PRN Reason: Constipation Last Admin: 04/05/20 22:27 Dose: 1 tablet Documented by: Simethicone (Simethicone 80 Mg Tablet) 80 mg PO PCHS PRN PRN Reason: Indigestion/Stomach pain Sodium Chloride (0.9% Saline Lock 10 Ml Syringe) 5 - 15 ml IV UD PRN PRN Reason: SALINE FLUSH Medical Necessity - Tobacco Use Smoking Status: Never smoker Assessment/Plan All Active Problems (Last Updated 04/04/20 @ 08:[address] Herlinda Snow, DO) 40 weeks gestation of (Acute) Multiparity (Acute) Genital herpes (Acute) A:PPD #2 P: 1) Routine and discharge instructions 2) Follow up in 2 weeks and 6 weeks 3) Discharge home today.
[2020-04-06 11:10] VITALS: BP 115/64; PULSE 88; RESP 18; TEMP 37; O2SAT 95
== END 2020-04-06 12:05 | disposition home or self-care (01) | DRG 560 ==
PROVIDERS: Admitting Provider Obstetrics & Gynecology; PCP Pediatrics; Referring Provider Obstetrics & Gynecology; Visit Provider Obstetrics & Gynecology
DX: O98.32 Other infections with a predominantly sexual mode of transmission complicating childbirth (principal); Z37.0 Single live birth; Z3A.40 40 weeks gestation of pregnancy; A60.00 Herpesviral infection of urogenital system, unspecified; O99.824 Streptococcus B carrier state complicating childbirth
CPT/HCPCS: 59025; 59050; 85025; 86850; 86900; 86901; 87426; 99218; J7120; G0378; J3490